=== PATIENT | male | born 1940 | race Caucasian/White ===

== ENCOUNTER 2018-08-11 09:58 | Inpatient (IN) | payer MEDICARE, OTHER ==
[2018-08-11] MEDS ORDERED: Sodium Chloride 0.9% 10 ML Syringe FLUSH PRN (10:32)
--- NOTE | 2018-08-11 10:43 | EDM.PDOC ---
ED HPI GENERAL MEDICAL PROBLEM - General Chief Complaint: General Stated Complaint: SWEELING IN HANDS Time Seen by Provider: 08/11/18 10:25 Source of Information: Reports: Patient, Family, RN Notes Reviewed History Limitations: Reports: No Limitations - History of Present Illness INITIAL COMMENTS - FREE TEXT/NARRATIVE: 78-year-old male presents to the emergency department today with family complaint of weakness. He does have a known history of dementia they noticed over the last week or so that has progressively gotten worse as he is now starting hallucinations by seeing bugs. His weakness has progressively gotten worse as well last night he was unable to get out of the chair and ended up sleeping on the floor last night he has a superficial abrasion on his left calf. His dementia is significant and is minimally communicative, review of systems is difficult to obtain - Related Data Allergies Allergy/AdvReac Type Severity Reaction Status Date / Time Penicillins Allergy Cardiac Verified 08/11/15 07:27 Arrest Home Meds: Home Meds Donepezil HCl 1 tab PO WITHDINNER 08/11/15 [History] Loratadine [Claritin] 1 tab PO DAILY 08/11/15 [History] Memantine [Namenda] 10 mg PO BID 08/11/18 [History] glipiZIDE [Glipizide ER] 2.5 mg PO ACBREAKFASTANDBED 08/11/18 [History] Past Medical History Cardiovascular History: Reports: Hypertension Respiratory History: Reports: Other (See Below) Other 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 Genitourinary History: Reports: Urinary Incontinence Neurological History: Reports: Alzheimers Disease, TIA Psychiatric History: Reports: Alzheimers Disease, Dementia Other Endocrine/Metabolic History: diabetes, on metformin - Infectious Disease History Infectious Disease History: Reports: Chicken Pox, Measles, Mumps - Past Surgical History GI Surgical History: Reports: Cholecystectomy Social & Family History - Family History Family Medical History: Noncontributory - Tobacco Use Smoking Status *Q: Never Smoker - Caffeine Use Caffeine Use: Reports: Coffee - Recreational Drug Use Recreational Drug Use: No ED ROS GENERAL - Review of Systems Review Of Systems: See Below Constitutional: Denies: Fever, Chills HEENT: Reports: No Symptoms Respiratory: Reports: No Symptoms Cardiovascular: Reports: No Symptoms GI/Abdominal: Reports: No Symptoms : Reports: Incontinence Musculoskeletal: Reports: No Symptoms Skin: Reports: Rash Neurological: Reports: No Symptoms ED EXAM, GENERAL - Physical Exam Exam: See Below Free Text/Narrative:: General: Male, not in any distress, alert and oriented x1 HEENT: head is atraumatic normocephalic, eyes pupils equal round reactive to light, sclera clear no conjunctivitis appreciated. Ears tympanic membranes clear and waters landmarks and light reflex are present bilaterally canals are clear. Nose no septal deviation, nares are clear, no blood present. Mouth mucosa is moist and pink no erythema or exudate noted in soft palate, tongue is midline uvula is midline, dentition is intact. Neck: Supple no thyromegaly no tracheal deviation. Nodes: Cervical nodes subclavicular nodes nontender no palpable lymphadenopathy noted. Lungs: clear to auscultation bilaterally with symmetrical respirations, no adventitious noise appreciated. CV: Regular rate and rhythm S1 and S2 appreciated no murmurs rubs or gallops noted. Abdomen: Soft, nontender, no palpable masses or organomegaly appreciated, no distention no guarding bowel sounds are present, . Neuro: GCS of 15, cranial nerves II through XII intact Skin: Warm and dry, intact superficial rash with abrasion appreciated left calf lateral aspect Extremities: No lower extremity edema appreciated, Course - Vital Signs Last Recorded V/S: Last Vital Signs Temp 98.1 F 08/11/18 10:03 Pulse 76 08/11/18 11:02 Resp 18 08/11/18 10:03 BP 134/53 L 08/11/18 11:02 Pulse Ox 90 L 08/11/18 11:02 - Orders/Labs/Meds Orders: Active Orders 24 hr Category Date Time Status Peripheral IV Care [RC] . DIRECTED Care 08/11/18 10:32 Active Azithromycin [Zithromax] 500 mg Med 08/11/18 12:30 Ordered Sodium Chloride 0.9% [Normal Saline] 250 ml IV ONETIME Lactated Ringers [Ringers, Lactated] 1,000 ml Med 08/11/18 10:45 Active IV ASDIRECTED Sodium Chloride 0.9% [Saline Flush] Med 08/11/18 10:32 Active 10 ml FLUSH ASDIRECTED PRN Peripheral IV Insertion Adult [OM.PC] Stat Oth 08/11/18 10:32 Ordered Medication Orders Lactated Ringer's (Ringers, Lactated) 1,000 mls @ 500 mls/hr IV ASDIRECTED NILE Last Admin: 08/11/18 11:01 Dose: 500 mls/hr Azithromycin 500 mg/ Sodium (Chloride) 250 mls @ 250 mls/hr IV ONETIME ONE Stop: 08/11/18 13:29 Sodium Chloride (Saline Flush) 10 ml FLUSH ASDIRECTED PRN PRN Reason: Keep Vein Open Last Admin: 08/11/18 11:01 Dose: 10 ml Labs: Laboratory Tests 08/11/18 08/11/18 08/11/18 Range/Units 10:48 10:48 10:48 WBC 10.9 (4.5-11.0) K/uL RBC 4.74 (4.30-5.90) M/uL Hgb 14.3 D (12.0-15.0) g/dL Hct 43.8 (40.0-54.0) % MCV 92 (80-98) fL MCH 30 (27-31) pg MCHC 33 (32-36) % Plt Count 270 (150-400) K/uL Neut % (Auto) 74 H (36-66) % Lymph % (Auto) 15 L (24-44) % Peach % (Auto) 10 H (2-6) % Eos % (Auto) 1 L (2-4) % Baso % (Auto) 0 (0-1) % Sodium 137 L (140-148) mmol/L Potassium 4.0 (3.6-5.2) mmol/L Chloride 105 (100-108) mmol/L Carbon Dioxide 21 (21-32) mmol/L Anion Gap 15.0 H (5.0-14.0) mmol/L BUN 22 H D (7-18) mg/dL Creatinine 1.1 (0.8-1.3) mg/dL Est Cr Clr Drug Dosing 60.85 mL/min Estimated GFR (MDRD) > 60 (>60) Glucose 143 H (74-106) mg/dL Lactic Acid (0.4-2.0) mmol/L Calcium 9.9 D (8.5-10.1) mg/dL Total Bilirubin 0.7 (0.2-1.0) mg/dL AST 30 (15-37) U/L ALT 32 (12-78) U/L Alkaline Phosphatase 66 (46-116) U/L Creatine Kinase 318 H (39-308) U/L Troponin I < 0.017 (0.000-0.056) ng/mL Total Protein 7.6 (6.4-8.2) g/dL Albumin 3.4 (3.4-5.0) g/dL Globulin 4.2 H (2.3-3.5) g/dL Albumin/Globulin Ratio 0.8 L (1.2-2.2) Urine Color Urine Appearance Urine pH (4.5-8.0) Ur Specific [place] (1.008-1.030) Urine Protein (NEGATIVE) mg/dL Urine Glucose (UA) (NEGATIVE) mg/dL Urine Ketones (NEGATIVE) mg/dL Urine Occult Blood (NEGATIVE) Urine Nitrite (NEGAITVE) Urine Bilirubin (NEGATIVE) Urine Urobilinogen (NORMAL) mg/dL Ur Leukocyte Esterase (NEGATIVE) Urine RBC (0-5) Urine WBC (0-5) Ur Epithelial Cells Amorphous Sediment Urine Bacteria Urine Mucus Urine Other 08/11/18 08/11/18 Range/Units 10:48 11:01 WBC (4.5-11.0) K/uL RBC (4.30-5.90) M/uL Hgb (12.0-15.0) g/dL Hct (40.0-54.0) % MCV (80-98) fL MCH (27-31) pg MCHC (32-36) % Plt Count (150-400) K/uL Neut % (Auto) (36-66) % Lymph % (Auto) (24-44) % [place] % (Auto) (2-6) % Eos % (Auto) (2-4) % Baso % (Auto) (0-1) % Sodium (140-148) mmol/L Potassium (3.6-5.2) mmol/L Chloride (100-108) mmol/L Carbon Dioxide (21-32) mmol/L Anion Gap (5.0-14.0) mmol/L BUN (7-18) mg/dL Creatinine (0.8-1.3) mg/dL Est Cr Clr Drug Dosing mL/min Estimated GFR (MDRD) (>60) Glucose (74-106) mg/dL Lactic Acid 5.3 H (0.4-2.0) mmol/L Calcium (8.5-10.1) mg/dL Total Bilirubin (0.2-1.0) mg/dL AST (15-37) U/L ALT (12-78) U/L Alkaline Phosphatase (46-116) U/L Creatine Kinase (39-308) U/L Troponin I (0.000-0.056) ng/mL Total Protein (6.4-8.2) g/dL Albumin (3.4-5.0) g/dL Globulin (2.3-3.5) g/dL Albumin/Globulin Ratio (1.2-2.2) Urine Color Yellow Urine Appearance Slightly cloudy Urine pH 5.0 (4.5-8.0) Ur Specific [place] 1.030 (1.008-1.030) Urine Protein Trace (NEGATIVE) mg/dL Urine Glucose (UA) Normal (NEGATIVE) mg/dL Urine Ketones 50 H (NEGATIVE) mg/dL Urine Occult Blood Trace (NEGATIVE) Urine Nitrite Negative (NEGAITVE) Urine Bilirubin Moderate (NEGATIVE) Urine Urobilinogen Normal (NORMAL) mg/dL Ur Leukocyte Esterase Negative (NEGATIVE) Urine RBC 0-5 (0-5) Urine WBC Not seen (0-5) Ur Epithelial Cells Not seen Amorphous Sediment Few Urine Bacteria Few Urine Mucus Moderate Urine Other Meds: Medications Generic Name Dose Route Start Last Admin Trade Name Freq PRN Reason Stop Dose Admin Lactated Ringer's 1,000 mls @ 500 mls/hr 08/11/18 10:45 08/11/18 11:01 Ringers, Lactated IV 500 mls/hr ASDIRECTED NILE Administration Azithromycin 500 mg/ Sodium 250 mls @ 250 mls/hr 08/11/18 12:30 Chloride IV 08/11/18 13:29 ONETIME ONE Sodium Chloride 10 ml 08/11/18 10:32 08/11/18 11:01 Saline Flush FLUSH 10 ml ASDIRECTED PRN Administration Keep Vein Open Discontinued Medications Generic Name Dose Route Start Last Admin Trade Name Freq PRN Reason Stop Dose Admin Ceftriaxone Sodium 1,000 mg 08/11/18 12:30 Rocephin IVPUSH 08/11/18 12:31 ONETIME ONE Departure - Departure Time of Disposition: 12:39 Disposition: Admitted As Inpatient 68 Condition: Fair Clinical Impression: CAP (community acquired pneumonia) Qualifiers: Laterality: right Lung location: lower lobe of lung Qualified Code(s): J18.1 - Lobar pneumonia, unspecified organism - Discharge Information Referrals: Seng Colunga MD [Primary Care Provider] - Forms: ED Department Discharge - My Orders Last 24 Hours: My Active Orders 08/11/18 10:32 Peripheral IV Care [RC] . DIRECTED Sodium Chloride 0.9% [Saline Flush] 10 ml FLUSH ASDIRECTED PRN Peripheral IV Insertion Adult [OM.PC] Stat 08/11/18 10:45 Lactated Ringers [Ringers, Lactated] 1,000 ml IV ASDIRECTED 08/11/18 12:30 Azithromycin [Zithromax] 500 mg Sodium Chloride 0.9% [Normal Saline] 250 ml IV ONETIME - Assessment/Plan Last 24 Hours: My Active Orders 08/11/18 10:32 Peripheral IV Care [RC] . DIRECTED Sodium Chloride 0.9% [Saline Flush] 10 ml FLUSH ASDIRECTED PRN Peripheral IV Insertion Adult [OM.PC] Stat 08/11/18 10:45 Lactated Ringers [Ringers, Lactated] 1,000 ml IV ASDIRECTED 08/11/18 12:30 Azithromycin [Zithromax] 500 mg Sodium Chloride 0.9% [Normal Saline] 250 ml IV ONETIME Plan: Assessment Acuity = acute Site and laterality = community acquired pneumonia, kidney patient with known history of dementia Etiology = suspicious for bacterial cause Manifestations = weakness, increased confusion Location of injury = Home Lab values = CBC unremarkable CMP unremarkable lactic acid elevated at 5.3 consistent with lactic acidosis, so came mildly elevated at 318 troponin was negative urinalysis unremarkable chest x-ray suspicious for pneumonia in the right lower lobe per radiology Plan Call discussed case with hospitalist at 12:30 he kindly agreed to come to the emergency department for admission, antibiotics of Rocephin and azithromycin have been order This note was dictated using [employer] voice recognition software please call with any questions on syntax or grammar.
[2018-08-11] MEDS ORDERED: Lactated Ringers 1,000 ML IV SCH (10:45)
--- NOTE | 2018-08-11 11:10 | CRLCR ---
INDICATION: Cough TECHNIQUE: Chest 1 views COMPARISON: August 11, 2015 FINDINGS: Cardiovascular and mediastinum: Heart size and vasculature are normal in caliber and appearance. Lungs and pleural spaces: Small ill-defined infiltrate may be present in the right infrahilar region. Remainder of the lungs and pleural spaces are clear. Bones and soft tissues: No significant findings. IMPRESSION: Acute pneumonia may be present in the right infrahilar region. Dictated by Boom Ponce MD @ Aug 11 2018 11:04AM Signed by Dr. Boom Ponce @ Aug 11 2018 11:08AM
[2018-08-11] MEDS ORDERED: cefTRIAXone 500 MG Vial IVPUSH ONE (12:30)
[2018-08-11] MEDS ORDERED: Azithromycin 500 MG in Sodium Chloride 0.9% 250 ML IV ONE (12:30)
[2018-08-11] MEDS ORDERED: Levofloxacin/Dextrose 5%-Water 750 MG in Premix Bag 1 BAG IV ONE (13:07)
--- NOTE | 2018-08-11 13:19 | PCM.HP ---
H&P History of Present Illness - General Date of Service: 08/11/18 Admit Problem/Dx: Admission Diagnosis/Problem Admission Diagnosis/Problem Pneumonia Source of Information: Patient (limited by dementia ), Family History Limitations: Reports: Other - History of Present Illness Initial Comments - Free Text/Narative: CC: I couldn't get off the floor HPI: Anam presented to the ER today by ambulance with weakness. History is gathered from emergency room personnel as well as his . He contributes some but has Alzheimer's dementia making history unreliable. He has had progressive weakness for several days. He's also been hallucinating and seeing spiders. He has also been looking for the dynamite but family reports there is none present in the home. He has been slowly getting weaker to the point that he was unable to stand up last night and slit off of his chair down to the floor. He was too weak to get up so he spent the night on the floor. He did do a fair amount of coughing yesterday but has not produced any sputum. There are not aware of any fevers or chills. Appetite has been normal. No change in bowel or bladder habits from baseline. No obvious sick contacts. He reports pain and some swelling in both his hands and his feet. This is been present for a couple of weeks but does not seem to get better. Workup in the emergency room suggested a right lower lobe pneumonia. Vital signs were stable but his lactic acid was moderately elevated and his creatine kinase was mildly elevated. With his multiple issues outlined in the assessment and plan he is not safe for outpatient management at this time. - Related Data Allergies/Adverse Reactions: Allergies Allergy/AdvReac Type Severity Reaction Status Date / Time Penicillins Allergy Cardiac Verified 08/11/15 07:27 Arrest Home Medications: Home Meds Donepezil HCl 1 tab PO WITHDINNER 08/11/15 [History] Loratadine [Claritin] 1 tab PO DAILY 08/11/15 [History] Memantine [Namenda] 10 mg PO BID 08/11/18 [History] glipiZIDE [Glipizide ER] 2.5 mg PO ACBREAKFASTANDBED 08/11/18 [History] Past Medical History Cardiovascular History: Reports: Hypertension Respiratory History: Reports: Other (See Below) Other 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 Genitourinary History: Reports: Urinary Incontinence Neurological History: Reports: Alzheimers Disease, TIA Psychiatric History: Reports: Alzheimers Disease, Dementia Other Endocrine/Metabolic History: diabetes, on metformin - Infectious Disease History Infectious Disease History: Reports: Chicken Pox, Measles, Mumps - Past Surgical History GI Surgical History: Reports: Cholecystectomy Social & Family History - Family History Family Medical History: Noncontributory - Tobacco Use Smoking Status *Q: Never Smoker - Caffeine Use Caffeine Use: Reports: Coffee - Alcohol Use Alcohol Use History: No - Recreational Drug Use Recreational Drug Use: No H&P Review of Systems - Review of Systems: Review Of Systems: See Below Free Text/Narrative: A complete 12 point review of systems was obtained. Pertinent positives and negatives are noted in the history of present illness. All other systems were reviewed and were negative except as noted. Exam - Exam Exam: See Below - Vital Signs Vital Signs: Last Vital Signs Temp 36.7 C 08/11/18 10:03 Pulse 76 08/11/18 11:02 Resp 18 08/11/18 10:03 BP 134/53 L 08/11/18 11:02 Pulse Ox 90 L 08/11/18 11:02 Weight: 95.7 kg - Exam Quality Assessment: No: Supplemental Oxygen General: Alert, Cooperative. No: Oriented, Mild Distress HEENT: Conjunctiva Clear. No: Mucosa Moist & Vayas (dry), Scleral Icterus Neck: Supple, Trachea Midline. No: Lymphadenopathy Lungs: Normal Respiratory Effort, Crackles (right lung base). No: Wheezing Cardiovascular: Regular Rate, Regular Rhythm. No: Systolic Murmur GI/Abdominal Exam: Normal Bowel Sounds, Soft, Non-Tender, No Distention, No Mass Back Exam: Normal Inspection. No: Vertebral Tenderness Extremities: No Pedal Edema, Increased Warmth (mild both wrists, both knees, both ankles and the tops of both feet ), Other (no erythema over any joints ) Skin: Warm, Dry. No: Rash Neuro Extensive - Mental Status: Alert, Nl Response to Commands. No: Oriented x3 Neuro Extensive - Motor, Sensory, Reflexes: No: Dysarthria, Abnormal Motor, Tremor Psychiatric: Alert, Normal Affect. No: Agitated - Patient Data Lab Results Last 24 hrs: Laboratory Results - last 24 hr 08/11/18 08/11/18 08/11/18 Range/Units 10:48 10:48 10:48 WBC 10.9 (4.5-11.0) K/uL RBC 4.74 (4.30-5.90) M/uL Hgb 14.3 D (12.0-15.0) g/dL Hct 43.8 (40.0-54.0) % MCV 92 (80-98) fL MCH 30 (27-31) pg MCHC 33 (32-36) % Plt Count 270 (150-400) K/uL Neut % (Auto) 74 H (36-66) % Lymph % (Auto) 15 L (24-44) % [place] % (Auto) 10 H (2-6) % Eos % (Auto) 1 L (2-4) % Baso % (Auto) 0 (0-1) % Sodium 137 L (140-148) mmol/L Potassium 4.0 (3.6-5.2) mmol/L Chloride 105 (100-108) mmol/L Carbon Dioxide 21 (21-32) mmol/L Anion Gap 15.0 H (5.0-14.0) mmol/L BUN 22 H D (7-18) mg/dL Creatinine 1.1 (0.8-1.3) mg/dL Est Cr Clr Drug Dosing 60.85 mL/min Estimated GFR (MDRD) > 60 (>60) Glucose 143 H (74-106) mg/dL Lactic Acid (0.4-2.0) mmol/L Calcium 9.9 D (8.5-10.1) mg/dL Total Bilirubin 0.7 (0.2-1.0) mg/dL AST 30 (15-37) U/L ALT 32 (12-78) U/L Alkaline Phosphatase 66 (46-116) U/L Creatine Kinase 318 H (39-308) U/L Troponin I < 0.017 (0.000-0.056) ng/mL Total Protein 7.6 (6.4-8.2) g/dL Albumin 3.4 (3.4-5.0) g/dL Globulin 4.2 H (2.3-3.5) g/dL Albumin/Globulin Ratio 0.8 L (1.2-2.2) Urine Color Urine Appearance Urine pH (4.5-8.0) Ur Specific [place] (1.008-1.030) Urine Protein (NEGATIVE) mg/dL Urine Glucose (UA) (NEGATIVE) mg/dL Urine Ketones (NEGATIVE) mg/dL Urine Occult Blood (NEGATIVE) Urine Nitrite (NEGAITVE) Urine Bilirubin (NEGATIVE) Urine Urobilinogen (NORMAL) mg/dL Ur Leukocyte Esterase (NEGATIVE) Urine RBC (0-5) Urine WBC (0-5) Ur Epithelial Cells Amorphous Sediment Urine Bacteria Urine Mucus Urine Other 08/11/18 08/11/18 Range/Units 10:48 11:01 WBC (4.5-11.0) K/uL RBC (4.30-5.90) M/uL Hgb (12.0-15.0) g/dL Hct (40.0-54.0) % MCV (80-98) fL MCH (27-31) pg MCHC (32-36) % Plt Count (150-400) K/uL Neut % (Auto) (36-66) % Lymph % (Auto) (24-44) % [place] % (Auto) (2-6) % Eos % (Auto) (2-4) % Baso % (Auto) (0-1) % Sodium (140-148) mmol/L Potassium (3.6-5.2) mmol/L Chloride (100-108) mmol/L Carbon Dioxide (21-32) mmol/L Anion Gap (5.0-14.0) mmol/L BUN (7-18) mg/dL Creatinine (0.8-1.3) mg/dL Est Cr Clr Drug Dosing mL/min Estimated GFR (MDRD) (>60) Glucose (74-106) mg/dL Lactic Acid 5.3 H (0.4-2.0) mmol/L Calcium (8.5-10.1) mg/dL Total Bilirubin (0.2-1.0) mg/dL AST (15-37) U/L ALT (12-78) U/L Alkaline Phosphatase (46-116) U/L Creatine Kinase (39-308) U/L Troponin I (0.000-0.056) ng/mL Total Protein (6.4-8.2) g/dL Albumin (3.4-5.0) g/dL Globulin (2.3-3.5) g/dL Albumin/Globulin Ratio (1.2-2.2) Urine Color Yellow Urine Appearance Slightly cloudy Urine pH 5.0 (4.5-8.0) Ur Specific [place] 1.030 (1.008-1.030) Urine Protein Trace (NEGATIVE) mg/dL Urine Glucose (UA) Normal (NEGATIVE) mg/dL Urine Ketones 50 H (NEGATIVE) mg/dL Urine Occult Blood Trace (NEGATIVE) Urine Nitrite Negative (NEGAITVE) Urine Bilirubin Moderate (NEGATIVE) Urine Urobilinogen Normal (NORMAL) mg/dL Ur Leukocyte Esterase Negative (NEGATIVE) Urine RBC 0-5 (0-5) Urine WBC Not seen (0-5) Ur Epithelial Cells Not seen Amorphous Sediment Few Urine Bacteria Few Urine Mucus Moderate Urine Other Result Diagrams: 08/11/18 10:48 08/11/18 10:48 Imaging Impressions Last 24 hrs: CXR - images personally reviewed - there is a subtle right lower lung infiltrate. no mass or effusion. heart size is normal. *Q Meaningful Use (ADM) - VTE Risk Assess *Q Each Risk Factor Represents 1 Point: Obesity ( BMI > 25 kg/m2), Serious lung disease including pneumonia Total Score 1 Point Risk Factors: 2 Each Risk Factor Represents 2 Points: None Total Score 2 Point Risk Factors: 0 Each Risk Factor Represents 3 Points: Age 75 Years or Greater Total Score 3 Point Risk Factors: 3 Each Risk Factor Represents 5 Points: None Total Score 5 Point Risk Factors: 0 Venous Thromboembolism Risk Factor Score *Q: 5 - Problem List (1) CAP (community acquired pneumonia) SNOMED Code(s): 796418821 ICD Code: J18.9 - PNEUMONIA, UNSPECIFIED ORGANISM Status: Acute Current Visit: Yes Qualifiers: Laterality: right Lung location: lower lobe of lung Qualified Code(s): J18.1 - Lobar pneumonia, unspecified organism (2) Moderate dehydration SNOMED Code(s): 2250903168577 ICD Code: E86.0 - DEHYDRATION Status: Acute Current Visit: Yes (3) Alzheimer's dementia without behavioral disturbance SNOMED Code(s): 91266373 ICD Code: G30.9 - ALZHEIMER'S DISEASE, UNSPECIFIED; F02.80 - DEMENTIA IN OTH DISEASES CLASSD ELSWHR W/O BEHAVRL DISTURB Status: Chronic Current Visit: Yes Qualifiers: Alzheimer's disease onset: late-onset Qualified Code(s): G30.1 - Alzheimer' s disease with late onset; F02.80 - Dementia in other diseases classified elsewhere without behavioral disturbance (4) Type 2 diabetes mellitus SNOMED Code(s): 56886544 ICD Code: E11.9 - TYPE 2 DIABETES MELLITUS WITHOUT COMPLICATIONS Status: Chronic Current Visit: Yes Qualifiers: Diabetes mellitus oil heaterman insulin use: without nursing home use Diabetes mellitus complication status: with unspecified complications Qualified Code(s) : E11.8 - Type 2 diabetes mellitus with unspecified complications Problem List Initiated/Reviewed/Updated: Yes Orders Last 24hrs: Active Orders 24 hr Category Date Time Status Patient Status Manage Transfer [TRANSFER] Routine ADT 08/11/18 13:09 Ordered Peripheral IV Care [RC] . DIRECTED Care 08/11/18 10:32 Active Levofloxacin/Dextrose 5%-Water [Levaquin in D5W 750 MG/ Med 08/11/18 13:07 Active 150 ML] 750 mg Premix Bag 1 bag IV ONETIME Sodium Chloride 0.9% [Normal Saline] 1,000 ml Med 08/11/18 13:15 Active IV ASDIRECTED Sodium Chloride 0.9% [Saline Flush] Med 08/11/18 10:32 Active 10 ml FLUSH ASDIRECTED PRN Peripheral IV Insertion Adult [OM.PC] Stat Oth 08/11/18 10:32 Ordered Resuscitation Status Routine Resus Stat 08/11/18 13:11 Ordered Medication Orders Levofloxacin/Dextrose 750 mg/ (Premix) 150 mls @ 100 mls/hr IV ONETIME ONE Stop: 08/11/18 14:36 Sodium Chloride (Normal Saline) 1,000 mls @ 150 mls/hr IV ASDIRECTED NILE Sodium Chloride (Saline Flush) 10 ml FLUSH ASDIRECTED PRN PRN Reason: Keep Vein Open Last Admin: 08/11/18 11:01 Dose: 10 ml Assessment/Plan Comment:: ASSESSMENT AND PLAN - Community-acquired pneumonia - patient is weak and hallucinating area vital signs are all stable. He is not currently hypoxic. Is not currently febrile. -Levofloxacin -Supplement oxygen if needed -Symptomatic management of cough Moderate dehydration - moderate elevation of lactic acid and mild elevation of CK. With his night on the floor he may progress to rhabdomyolysis. I suspect the lactic acidosis is related to dehydration and intravascular volume depletion rather than sepsis. He has received 1 L of IV fluids in the emergency room. -Normal saline at 150 mL per hour -Repeat CK level in the morning -Repeat lactic acid level this afternoon Symmetric polyarthritis - involves wrists, knees, ankles and metatarsals. Pseudogout is suspected. -Uric acid level -Prednisone 20 mg daily for 3 days Type 2 diabetes mellitus - Sugars have been stable with only a low-dose oral medication. -Continue glipizide Alzheimer's dementia - No significant behavior issues at this time. -Melatonin at bedtime -Continue home medications Maintenance issues - - DVT prophylaxis - enoxaparin - GI prophylaxis - not indicated - Nutrition - diabetic - Campos catheter - not indicated CODE STATUS - DNR/DNI Admission justification - This patient will be admitted for inpatient services and is medically appropriate meeting medical necessity for inpatient admission as outlined in my documentation. I reasonably expect the patient will require inpatient services that span a period time over 2 midnights. I reasonably expect this patient to be discharged or transferred within 96 hours after admission to the [facility]. Disposition - I would anticipate discharge home possibly with home care versus may be a short subacute rehabilitation stay Primary care physician - Dr Keanu Light M.D.
[2018-08-11] MEDS: Sodium Chloride 0.9% 1,000 ML IV SCH ×2 (13:23→19:34)
[2018-08-11] MEDS ORDERED: Polyethylene Glycol 3350 Powder 17 GM Packet PO PRN (13:48)
[2018-08-11] MEDS ORDERED: guaiFENesin/Dextromethorphan 100-10 MG/5 ML Soln 10 ML Cup PO PRN (13:48)
[2018-08-11] MEDS ORDERED: Albuterol 0.083% 2.5 MG/3 ML Neb Soln NEB PRN (13:48)
[2018-08-11] MEDS ORDERED: Ondansetron 4 MG Tab.DIS PO PRN (13:48)
[2018-08-11] MEDS ORDERED: Acetaminophen 325 MG Tab PO PRN (13:48)
[2018-08-11] MEDS ORDERED: predniSONE 20 MG Tab PO ONE (14:15)
[2018-08-11] MEDS: Donepezil 10 MG Tab PO SCH (17:40)
[2018-08-11] MEDS ORDERED: Haloperidol Lactate 5 MG/ML SDV IVPUSH PRN (18:29)
[2018-08-11] MEDS ORDERED: GLIPIZIDE 2.5 MG PO SCH (21:00)
[2018-08-11] MEDS: glipiZIDE 5 MG Tab PO SCH (22:15)
[2018-08-11] MEDS: Memantine 10 MG Tab PO SCH (22:16)
[2018-08-11] MEDS: Melatonin 3 MG Tab PO SCH (22:16)
[2018-08-12] MEDS: Sodium Chloride 0.9% 1,000 ML IV SCH ×4 (02:17→23:18)
[2018-08-12] MEDS: predniSONE 20 MG Tab PO SCH (07:52)
[2018-08-12] MEDS: glipiZIDE 5 MG Tab PO SCH ×2 (07:52→21:17)
[2018-08-12] MEDS: Enoxaparin 40 MG/0.4 ML Syringe SUBCUT SCH (08:06)
[2018-08-12] MEDS: Memantine 10 MG Tab PO SCH ×2 (08:06→21:18)
[2018-08-12] MEDS: Loratadine 10 MG Tab PO SCH (08:07)
[2018-08-12] MEDS ORDERED: LORATADINE PO SCH (09:00)
--- NOTE | 2018-08-12 10:56 | PCM.PN ---
- General Info Date of Service: 08/12/18 Subjective Update: he had some mild agitation which was brief but there were no acute events overnight. Lactic acid level improved but did not quite normalize. CK level initially ben slightly but has improved but not quite normalize this morning. Patient reports that his wrist pain and ankle pain have improved but he doesn't think they're quite gone. no complaints of shortness of breath or abdominal pain. He has not required oxygen. He has not been coughing much. Functional Status: Reports: Pain Controlled - Review of Systems General: Reports: Weakness. Denies: Fever - Patient Data Vitals - Most Recent: Last Vital Signs Temp 36.3 C 08/12/18 07:00 Pulse 69 08/12/18 07:00 Resp 16 08/12/18 07:00 BP 137/65 08/12/18 07:00 Pulse Ox 96 08/12/18 07:00 Weight - Most Recent: 94.03 kg I&O - Last 24 Hours: Intake & Output 08/11/18 08/12/18 08/12/18 22:59 06:59 14:59 Intake Total 2168 1963 280 Balance 2168 1963 280 Lab Results Last 24 Hours: Laboratory Results - last 24 hr 08/11/18 08/11/18 08/11/18 Range/Units 10:48 10:48 10:48 WBC (4.5-11.0) K/uL RBC (4.30-5.90) M/uL Hgb (12.0-15.0) g/dL Hct (40.0-54.0) % MCV (80-98) fL MCH (27-31) pg MCHC (32-36) % Plt Count (150-400) K/uL Neut % (Auto) (36-66) % Lymph % (Auto) (24-44) % [place] % (Auto) (2-6) % Eos % (Auto) (2-4) % Baso % (Auto) (0-1) % Sodium 137 L (140-148) mmol/L Potassium 4.0 (3.6-5.2) mmol/L Chloride 105 (100-108) mmol/L Carbon Dioxide 21 (21-32) mmol/L Anion Gap 15.0 H (5.0-14.0) mmol/L BUN 22 H D (7-18) mg/dL Creatinine 1.1 (0.8-1.3) mg/dL Est Cr Clr Drug Dosing 60.85 mL/min Estimated GFR (MDRD) > 60 (>60) Glucose 143 H (74-106) mg/dL Lactic Acid 5.3 H (0.4-2.0) mmol/L Calcium 9.9 D (8.5-10.1) mg/dL Total Bilirubin 0.7 (0.2-1.0) mg/dL AST 30 (15-37) U/L ALT 32 (12-78) U/L Alkaline Phosphatase 66 (46-116) U/L Creatine Kinase 318 H (39-308) U/L Troponin I < 0.017 (0.000-0.056) ng/mL Total Protein 7.6 (6.4-8.2) g/dL Albumin 3.4 (3.4-5.0) g/dL Globulin 4.2 H (2.3-3.5) g/dL Albumin/Globulin Ratio 0.8 L (1.2-2.2) Urine Color Urine Appearance Urine pH (4.5-8.0) Ur Specific [place] (1.008-1.030) Urine Protein (NEGATIVE) mg/dL Urine Glucose (UA) (NEGATIVE) mg/dL Urine Ketones (NEGATIVE) mg/dL Urine Occult Blood (NEGATIVE) Urine Nitrite (NEGAITVE) Urine Bilirubin (NEGATIVE) Urine Urobilinogen (NORMAL) mg/dL Ur Leukocyte Esterase (NEGATIVE) Urine RBC (0-5) Urine WBC (0-5) Ur Epithelial Cells Amorphous Sediment Urine Bacteria Urine Mucus Urine Other 08/11/18 08/11/18 08/11/18 Range/Units 11:01 14:20 20:00 WBC (4.5-11.0) K/uL RBC (4.30-5.90) M/uL Hgb (12.0-15.0) g/dL Hct (40.0-54.0) % MCV (80-98) fL MCH (27-31) pg MCHC (32-36) % Plt Count (150-400) K/uL Neut % (Auto) (36-66) % Lymph % (Auto) (24-44) % [place] % (Auto) (2-6) % Eos % (Auto) (2-4) % Baso % (Auto) (0-1) % Sodium (140-148) mmol/L Potassium (3.6-5.2) mmol/L Chloride (100-108) mmol/L Carbon Dioxide (21-32) mmol/L Anion Gap (5.0-14.0) mmol/L BUN (7-18) mg/dL Creatinine (0.8-1.3) mg/dL Est Cr Clr Drug Dosing mL/min Estimated GFR (MDRD) (>60) Glucose (74-106) mg/dL Lactic Acid 2.8 H (0.4-2.0) mmol/L Calcium (8.5-10.1) mg/dL Total Bilirubin (0.2-1.0) mg/dL AST (15-37) U/L ALT (12-78) U/L Alkaline Phosphatase (46-116) U/L Creatine Kinase 700 H (39-308) U/L Troponin I (0.000-0.056) ng/mL Total Protein (6.4-8.2) g/dL Albumin (3.4-5.0) g/dL Globulin (2.3-3.5) g/dL Albumin/Globulin Ratio (1.2-2.2) Urine Color Yellow Urine Appearance Slightly cloudy Urine pH 5.0 (4.5-8.0) Ur Specific [place] 1.030 (1.008-1.030) Urine Protein Trace (NEGATIVE) mg/dL Urine Glucose (UA) Normal (NEGATIVE) mg/dL Urine Ketones 50 H (NEGATIVE) mg/dL Urine Occult Blood Trace (NEGATIVE) Urine Nitrite Negative (NEGAITVE) Urine Bilirubin Moderate (NEGATIVE) Urine Urobilinogen Normal (NORMAL) mg/dL Ur Leukocyte Esterase Negative (NEGATIVE) Urine RBC 0-5 (0-5) Urine WBC Not seen (0-5) Ur Epithelial Cells Not seen Amorphous Sediment Few Urine Bacteria Few Urine Mucus Moderate Urine Other 08/11/18 08/12/18 08/12/18 Range/Units 20:00 06:02 06:02 WBC 9.2 (4.5-11.0) K/uL RBC 4.32 (4.30-5.90) M/uL Hgb 13.0 (12.0-15.0) g/dL Hct 40.3 (40.0-54.0) % MCV 93 (80-98) fL MCH 30 (27-31) pg MCHC 32 (32-36) % Plt Count 240 (150-400) K/uL Neut % (Auto) 63 (36-66) % Lymph % (Auto) 25 (24-44) % [place] % (Auto) 10 H (2-6) % Eos % (Auto) 2 (2-4) % Baso % (Auto) 0 (0-1) % Sodium 141 (140-148) mmol/L Potassium 3.6 (3.6-5.2) mmol/L Chloride 107 (100-108) mmol/L Carbon Dioxide 24 (21-32) mmol/L Anion Gap 9.8 (5.0-14.0) mmol/L BUN 11 (7-18) mg/dL Creatinine 0.7 L (0.8-1.3) mg/dL Est Cr Clr Drug Dosing 95.62 mL/min Estimated GFR (MDRD) > 60 (>60) Glucose 119 H (74-106) mg/dL Lactic Acid 3.3 H (0.4-2.0) mmol/L Calcium 9.4 (8.5-10.1) mg/dL Total Bilirubin (0.2-1.0) mg/dL AST (15-37) U/L ALT (12-78) U/L Alkaline Phosphatase (46-116) U/L Creatine Kinase 460 H (39-308) U/L Troponin I (0.000-0.056) ng/mL Total Protein (6.4-8.2) g/dL Albumin (3.4-5.0) g/dL Globulin (2.3-3.5) g/dL Albumin/Globulin Ratio (1.2-2.2) Urine Color Urine Appearance Urine pH (4.5-8.0) Ur Specific [place] (1.008-1.030) Urine Protein (NEGATIVE) mg/dL Urine Glucose (UA) (NEGATIVE) mg/dL Urine Ketones (NEGATIVE) mg/dL Urine Occult Blood (NEGATIVE) Urine Nitrite (NEGAITVE) Urine Bilirubin (NEGATIVE) Urine Urobilinogen (NORMAL) mg/dL Ur Leukocyte Esterase (NEGATIVE) Urine RBC (0-5) Urine WBC (0-5) Ur Epithelial Cells Amorphous Sediment Urine Bacteria Urine Mucus Urine Other Med Orders - Current: Current Medications Acetaminophen (Tylenol) 650 mg PO Q4H PRN PRN Reason: Pain (Mild 1-3)/fever Albuterol (Proventil Neb Soln) 2.5 mg NEB Q4H PRN PRN Reason: Shortness Of Breath/wheezing Donepezil HCl (Aricept) 10 mg PO WITHDINNER [facility] Last Admin: 08/11/18 17:40 Dose: 10 mg Enoxaparin Sodium (Lovenox) 40 mg SUBCUT DAILY [facility] Last Admin: 08/12/18 08:06 Dose: 40 mg Glipizide (Glucotrol) 2.5 mg PO ACBREAKFASTANDBED [facility] Last Admin: 08/12/18 07:52 Dose: 2.5 mg Guaifenesin/Dextromethorphan (Robitussin Dm) 10 ml PO Q4H PRN PRN Reason: Cough Haloperidol Lactate (Haldol) 1 - 2 mg IVPUSH Q4H PRN PRN Reason: Agitation Last Admin: 08/11/18 18:47 Dose: 2 mg Sodium Chloride (Normal Saline) 1,000 mls @ 150 mls/hr IV ASDIRECTED [facility] Last Admin: 08/12/18 09:51 Dose: 150 mls/hr Levofloxacin 250 mg/ (Levofloxacin 500 mg) 750 mg PO Q24H [facility] Loratadine (Claritin) 10 mg PO DAILY [facility] Last Admin: 08/12/18 08:07 Dose: 10 mg Melatonin (Melatonin) 9 mg PO BEDTIME [facility] Last Admin: 08/11/18 22:16 Dose: 9 mg Memantine (Namenda) 10 mg PO BID [facility] Last Admin: 08/12/18 08:06 Dose: 10 mg Ondansetron HCl (Zofran Odt) 4 mg PO Q6H PRN PRN Reason: Nausea able to take PO Polyethylene Glycol (Miralax) 17 gm PO DAILY PRN PRN Reason: Constipation Prednisone (Prednisone) 20 mg PO WITHBREAKFAST [facility] Last Admin: 08/12/18 07:52 Dose: 20 mg Senna/Docusate Sodium (Senna Plus) 1 tab PO BID PRN PRN Reason: Constipation Sodium Chloride (Saline Flush) 10 ml FLUSH ASDIRECTED PRN PRN Reason: Keep Vein Open Last Admin: 08/11/18 11:01 Dose: 10 ml Discontinued Medications Lactated Ringer's (Ringers, Lactated) 1,000 mls @ 500 mls/hr IV ASDIRECTED [facility] Last Admin: 08/11/18 11:01 Dose: 500 mls/hr Levofloxacin/Dextrose 750 mg/ (Premix) 150 mls @ 100 mls/hr IV ONETIME ONE Stop: 08/11/18 14:36 Last Admin: 08/11/18 13:24 Dose: 100 mls/hr Prednisone (Prednisone) 20 mg PO ONETIME ONE Stop: 08/11/18 14:16 Last Admin: 08/11/18 15:05 Dose: 20 mg - Exam Quality Assessment: No: Supplemental Oxygen General: Alert, Cooperative, No Acute Distress. No: Oriented HEENT: Pupils Equal Lungs: Clear to Auscultation, Normal Respiratory Effort Cardiovascular: Regular Rate, Regular Rhythm GI/Abdominal Exam: Normal Bowel Sounds, Soft, No Distention Extremities: No Pedal Edema. No: Increased Warmth (no warmth of wrists, knees, ankles or feet today ) Skin: Warm, Dry Psy/Mental Status: Alert, Normal Affect - Problem List & Annotations (1) CAP (community acquired pneumonia) SNOMED Code(s): 039297949 Code(s): J18.9 - PNEUMONIA, UNSPECIFIED ORGANISM Status: Acute Current Visit: Yes Qualifiers: Laterality: right Lung location: lower lobe of lung Qualified Code(s): J18.1 - Lobar pneumonia, unspecified organism (2) Moderate dehydration SNOMED Code(s): 0371216844019 Code(s): E86.0 - DEHYDRATION Status: Acute Current Visit: Yes (3) Alzheimer's dementia without behavioral disturbance SNOMED Code(s): 87225566 Code(s): G30.9 - ALZHEIMER'S DISEASE, UNSPECIFIED; F02.80 - DEMENTIA IN OTH DISEASES CLASSD ELSWHR W/O BEHAVRL DISTURB Status: Chronic Current Visit: Yes Qualifiers: Alzheimer's disease onset: late-onset Qualified Code(s): G30.1 - Alzheimer' s disease with late onset; F02.80 - Dementia in other diseases classified elsewhere without behavioral disturbance (4) Type 2 diabetes mellitus SNOMED Code(s): 78384981 Code(s): E11.9 - TYPE 2 DIABETES MELLITUS WITHOUT COMPLICATIONS Status: Chronic Current Visit: Yes Qualifiers: Diabetes mellitus senior living insulin use: without long term care pharmacist use Diabetes mellitus complication status: with unspecified complications Qualified Code(s) : E11.8 - Type 2 diabetes mellitus with unspecified complications - Problem List Review Problem List Initiated/Reviewed/Updated: Yes - My Orders Last 24 Hours: My Active Orders 08/11/18 13:11 Resuscitation Status Routine 08/11/18 13:15 Sodium Chloride 0.9% [Normal Saline] 1,000 ml IV ASDIRECTED 08/11/18 13:48 Patient Status [ADT] Routine Intake and Output [RC] QSHIFT Notify Provider Vital Signs [RC] ASDIRECTED Oxygen Therapy [RC] PRN RT Aerosol Therapy [RC] ASDIRECTED Up With Assistance [RC] ASDIRECTED Vital Signs [RC] Q4H Acetaminophen [Tylenol] 650 mg PO Q4H PRN Albuterol [Proventil Neb Soln] 2.5 mg NEB Q4H PRN Dextromethorphan/guaiFENesin [Robitussin DM] 10 ml PO Q4H PRN Docusate Sodium/Sennosides [Senna Plus] 1 tab PO BID PRN Ondansetron [Zofran ODT] 4 mg PO Q6H PRN Polyethylene Glycol 3350 [MiraLAX] 17 gm PO DAILY PRN 08/11/18 17:00 Donepezil [Aricept] 10 mg PO WITHDINNER 08/11/18 21:00 Melatonin 9 mg PO BEDTIME Memantine [Namenda] 10 mg PO BID glipiZIDE [Glucotrol] 2.5 mg PO ACBREAKFASTANDBED 08/11/18 Dinner Consistent Carbohydrate Diet [DIET] 08/12/18 07:00 PT Evaluation and Treatment [CONS] Routine 08/12/18 08:00 predniSONE 20 mg PO WITHBREAKFAST 08/12/18 09:00 Enoxaparin [Lovenox] 40 mg SUBCUT DAILY Loratadine [Claritin] 10 mg PO DAILY 08/12/18 14:00 Levofloxacin [Levaquin] 750 mg PO Q24H 08/13/18 05:00 BASIC METABOLIC PANEL,BMP [CHEM] Timed CREATINE KINASE,CK [CHEM] Timed - Plan Plan:: ASSESSMENT AND PLAN - Community-acquired pneumonia - vitals stable, not requiring oxygen and doing well from a pneumonia standpoint. -Levofloxacin -Supplement oxygen if needed -Symptomatic management of cough Acute rhabdomyolysis - patient spent the night on the floor the night prior to admission and did develop mild rhabdomyolysis with moderate dehydration complicating the situation. CK level initially ben but has improved overnight but not back to normal yet. -Normal saline at 150 mL per hour -Repeat CK level in the morning -Repeat lactic acid level this afternoon Symmetric polyarthritis - involves wrists, knees, ankles and metatarsals. Pseudogout is suspected and clinically he is better today. -Prednisone 20 mg daily for 3 days Type 2 diabetes mellitus - Sugars have been stable with only a low-dose oral medication. -Continue glipizide Alzheimer's dementia - No significant behavior issues at this time. -Melatonin at bedtime -Continue home medications Maintenance issues - - DVT prophylaxis - enoxaparin - GI prophylaxis - not indicated - Nutrition - diabetic Disposition - I would anticipate discharge home possibly with home care versus may be a short subacute rehabilitation stay Primary care physician - Dr Keanu Light M.D.
[2018-08-12] MEDS ORDERED: Levofloxacin 500 MG Tab PO SCH (14:00)
[2018-08-12] MEDS: Donepezil 10 MG Tab PO SCH (17:35)
[2018-08-12] MEDS: Melatonin 3 MG Tab PO SCH (21:18)
[2018-08-13] MEDS: Sodium Chloride 0.9% 1,000 ML IV SCH (06:11)
[2018-08-13] MEDS: glipiZIDE 5 MG Tab PO SCH ×2 (07:46→21:24)
[2018-08-13] MEDS: predniSONE 20 MG Tab PO SCH (07:46)
[2018-08-13] MEDS ORDERED: Potassium Chloride 20 MEQ Tab.ER PO ONE (09:30)
[2018-08-13] MEDS: Memantine 10 MG Tab PO SCH ×2 (09:42→21:25)
[2018-08-13] MEDS: Enoxaparin 40 MG/0.4 ML Syringe SUBCUT SCH (09:42)
[2018-08-13] MEDS: Loratadine 10 MG Tab PO SCH (09:42)
[2018-08-13] MEDS: Donepezil 10 MG Tab PO SCH (17:11)
--- NOTE | 2018-08-13 17:37 | PCM.PN ---
- General Info Date of Service: 08/13/18 Subjective Update: There were no acute events overnight. No significant issues with agitation. Patient says he feels fine and wants to go home. CK level remains very mildly elevated. Cough has improved. He has not been hypoxic. He is very weak and requires the assist of 2 to get out of bed. - Review of Systems General: Denies: Fever Pulmonary: Denies: Cough - Patient Data Vitals - Most Recent: Last Vital Signs Temp 36.2 C 08/13/18 16:00 Pulse 72 08/13/18 16:00 Resp 18 08/13/18 16:00 BP 138/55 L 08/13/18 16:00 Pulse Ox 96 08/13/18 16:00 Weight - Most Recent: 94.03 kg I&O - Last 24 Hours: Intake & Output 08/13/18 08/13/18 08/13/18 06:59 14:59 22:59 Intake Total 1923 480 Balance 1923 480 Lab Results Last 24 Hours: Laboratory Results - last 24 hr 08/13/18 Range/Units 05:00 Sodium 141 (140-148) mmol/L Potassium 3.3 L (3.6-5.2) mmol/L Chloride 107 (100-108) mmol/L Carbon Dioxide 24 (21-32) mmol/L Anion Gap 13.3 (5.0-14.0) mmol/L BUN 14 (7-18) mg/dL Creatinine 0.7 L (0.8-1.3) mg/dL Est Cr Clr Drug Dosing 95.23 mL/min Estimated GFR (MDRD) > 60 (>60) Glucose 93 (74-106) mg/dL Uric Acid 3.9 (3.5-7.2) mg/dL Calcium 8.6 (8.5-10.1) mg/dL Creatine Kinase 464 H (39-308) U/L Med Orders - Current: Current Medications Acetaminophen (Tylenol) 650 mg PO Q4H PRN PRN Reason: Pain (Mild 1-3)/fever Albuterol (Proventil Neb Soln) 2.5 mg NEB Q4H PRN PRN Reason: Shortness Of Breath/wheezing Donepezil HCl (Aricept) 10 mg PO [place] [facility] Last Admin: 08/13/18 17:11 Dose: 10 mg Enoxaparin Sodium (Lovenox) 40 mg SUBCUT DAILY [facility] Last Admin: 08/13/18 09:42 Dose: 40 mg Glipizide (Glucotrol) 2.5 mg PO ACBREAKFASTANDBED [facility] Last Admin: 08/13/18 07:46 Dose: 2.5 mg Guaifenesin/Dextromethorphan (Robitussin Dm) 10 ml PO Q4H PRN PRN Reason: Cough Haloperidol (Haldol) 5 mg PO Q4H PRN PRN Reason: Agitation Sodium Chloride (Normal Saline) 1,000 mls @ 150 mls/hr IV ASDIRECTED [facility] Last Admin: 08/13/18 06:11 Dose: 150 mls/hr Levofloxacin 250 mg/ (Levofloxacin 500 mg) 750 mg PO Q24H [facility] Last Admin: 08/13/18 14:28 Dose: 750 mg Loratadine (Claritin) 10 mg PO DAILY [facility] Last Admin: 08/13/18 09:42 Dose: 10 mg Melatonin (Melatonin) 9 mg PO BEDTIME [facility] Last Admin: 08/12/18 21:18 Dose: 9 mg Memantine (Namenda) 10 mg PO BID [facility] Last Admin: 08/13/18 09:42 Dose: 10 mg Ondansetron HCl (Zofran Odt) 4 mg PO Q6H PRN PRN Reason: Nausea able to take PO Polyethylene Glycol (Miralax) 17 gm PO DAILY PRN PRN Reason: Constipation Prednisone (Prednisone) 20 mg PO WITHBREAKFAST [facility] Last Admin: 08/13/18 07:46 Dose: 20 mg Senna/Docusate Sodium (Senna Plus) 1 tab PO BID PRN PRN Reason: Constipation Sodium Chloride (Saline Flush) 10 ml FLUSH ASDIRECTED PRN PRN Reason: Keep Vein Open Last Admin: 08/11/18 11:01 Dose: 10 ml Discontinued Medications Haloperidol Lactate (Haldol) 1 - 2 mg IVPUSH Q4H PRN PRN Reason: Agitation Last Admin: 08/11/18 18:47 Dose: 2 mg Lactated Ringer's (Ringers, Lactated) 1,000 mls @ 500 mls/hr IV ASDIRECTED [facility] Last Admin: 08/11/18 11:01 Dose: 500 mls/hr Levofloxacin/Dextrose 750 mg/ (Premix) 150 mls @ 100 mls/hr IV ONETIME ONE Stop: 08/11/18 14:36 Last Admin: 08/11/18 13:24 Dose: 100 mls/hr Potassium Chloride (Klor-Con M20) 40 meq PO ONETIME ONE Stop: 08/13/18 09:31 Last Admin: 08/13/18 09:42 Dose: 40 meq Prednisone (Prednisone) 20 mg PO ONETIME ONE Stop: 08/11/18 14:16 Last Admin: 08/11/18 15:05 Dose: 20 mg - Exam Quality Assessment: No: Supplemental Oxygen General: Alert, Cooperative, No Acute Distress. No: Oriented Lungs: Normal Respiratory Effort, Crackles (Rare right lung base) Cardiovascular: Regular Rate, Regular Rhythm GI/Abdominal Exam: Soft, No Distention Extremities: No Pedal Edema Psy/Mental Status: Alert, Normal Affect. No: Agitated - Problem List & Annotations (1) CAP (community acquired pneumonia) SNOMED Code(s): 276739602 Code(s): J18.9 - PNEUMONIA, UNSPECIFIED ORGANISM Status: Acute Current Visit: Yes Qualifiers: Laterality: right Lung location: lower lobe of lung Qualified Code(s): J18.1 - Lobar pneumonia, unspecified organism (2) Moderate dehydration SNOMED Code(s): 0413269035364 Code(s): E86.0 - DEHYDRATION Status: Acute Current Visit: Yes (3) Alzheimer's dementia without behavioral disturbance SNOMED Code(s): 54218842 Code(s): G30.9 - ALZHEIMER'S DISEASE, UNSPECIFIED; F02.80 - DEMENTIA IN OTH DISEASES CLASSD ELSWHR W/O BEHAVRL DISTURB Status: Chronic Current Visit: Yes Qualifiers: Alzheimer's disease onset: late-onset Qualified Code(s): G30.1 - Alzheimer' s disease with late onset; F02.80 - Dementia in other diseases classified elsewhere without behavioral disturbance (4) Type 2 diabetes mellitus SNOMED Code(s): 19126507 Code(s): E11.9 - TYPE 2 DIABETES MELLITUS WITHOUT COMPLICATIONS Status: Chronic Current Visit: Yes Qualifiers: Diabetes mellitus superintendent terminal insulin use: without detention use Diabetes mellitus complication status: with unspecified complications Qualified Code(s) : E11.8 - Type 2 diabetes mellitus with unspecified complications - Problem List Review Problem List Initiated/Reviewed/Updated: Yes - My Orders Last 24 Hours: My Active Orders 08/13/18 09:46 Haloperidol [Haldol] 5 mg PO Q4H PRN 08/14/18 05:00 BASIC METABOLIC PANEL,BMP [CHEM] Timed CREATINE KINASE,CK [CHEM] Timed - Plan Plan:: ASSESSMENT AND PLAN - Community-acquired pneumonia - vitals stable, not requiring oxygen and doing well other than his profound weakness. -Levofloxacin for total of 7 days -Supplement oxygen if needed -Symptomatic management of cough -Physical therapy for weakness Acute rhabdomyolysis - patient spent the night on the floor the night prior to admission and did develop mild rhabdomyolysis. CK level stable but not quite normalized. Patient has pulled out his IV. -Encourage oral intake -Repeat CK level in the morning Symmetric polyarthritis - involves wrists, knees, ankles and metatarsals. Pseudogout is suspected and clinically he is pain-free today. -Prednisone 20 mg daily for 3 days Type 2 diabetes mellitus - Sugars have been stable with only a low-dose oral medication. -Continue glipizide Alzheimer's dementia - No significant behavior issues at this time. -Melatonin at bedtime -Continue home medications Maintenance issues - - DVT prophylaxis - enoxaparin - GI prophylaxis - not indicated - Nutrition - diabetic Disposition - I would anticipate discharge to the detention tomorrow. Primary care physician - Dr Keanu Light M.D.
[2018-08-13] MEDS: Melatonin 3 MG Tab PO SCH (21:25)
[2018-08-13] MEDS: Haloperidol 5 MG Tab PO PRN (22:18)
[2018-08-14] MEDS: Haloperidol 5 MG Tab PO PRN (02:14)
[2018-08-14 08:51] VITALS: BP 141/74
[2018-08-14] MEDS ORDERED: Potassium Chloride 20 MEQ Tab.ER PO ONE (09:00)
[2018-08-14] MEDS: predniSONE 20 MG Tab PO SCH (09:41)
[2018-08-14] MEDS: Loratadine 10 MG Tab PO SCH (09:41)
[2018-08-14] MEDS: Memantine 10 MG Tab PO SCH (09:42)
[2018-08-14] MEDS: Enoxaparin 40 MG/0.4 ML Syringe SUBCUT SCH (09:42)
[2018-08-14] MEDS: glipiZIDE 5 MG Tab PO SCH (09:43)
--- NOTE | 2018-08-14 10:02 | PCM.DCSUM1 ---
Discharge Summary - Hospital Course Brief History: 78-year-old male with a history of well-controlled type 2 diabetes mellitus, advanced Alzheimer's dementia who presented with generalized weakness and cough. He is admitted for pneumonia, mild rhabdomyolysis and significant dehydration. Diagnosis: Stroke: No - Discharge Data Discharge Date: 08/14/18 Discharge Disposition: DC/Tfer to SNF 03 Condition: Good - Discharge Diagnosis/Problem(s) (1) CAP (community acquired pneumonia) SNOMED Code(s): 428357460 ICD Code: J18.9 - PNEUMONIA, UNSPECIFIED ORGANISM Status: Acute Current Visit: Yes Qualifiers: Laterality: right Lung location: lower lobe of lung Qualified Code(s): J18.1 - Lobar pneumonia, unspecified organism (2) Moderate dehydration SNOMED Code(s): 4638133305368 ICD Code: E86.0 - DEHYDRATION Status: Acute Current Visit: Yes (3) Alzheimer's dementia without behavioral disturbance SNOMED Code(s): 82697146 ICD Code: G30.9 - ALZHEIMER'S DISEASE, UNSPECIFIED; F02.80 - DEMENTIA IN OTH DISEASES CLASSD ELSWHR W/O BEHAVRL DISTURB Status: Chronic Current Visit: Yes Qualifiers: Alzheimer's disease onset: late-onset Qualified Code(s): G30.1 - Alzheimer' s disease with late onset; F02.80 - Dementia in other diseases classified elsewhere without behavioral disturbance (4) Type 2 diabetes mellitus SNOMED Code(s): 48638409 ICD Code: E11.9 - TYPE 2 DIABETES MELLITUS WITHOUT COMPLICATIONS Status: Chronic Current Visit: Yes Qualifiers: Diabetes mellitus exterminator insulin use: without detention use Diabetes mellitus complication status: with unspecified complications Qualified Code(s) : E11.8 - Type 2 diabetes mellitus with unspecified complications (5) Rhabdomyolysis SNOMED Code(s): 946431339 ICD Code: M62.82 - RHABDOMYOLYSIS Status: Acute Current Visit: Yes Qualifiers: Rhabdomyolysis type: traumatic Encounter type: initial encounter Qualified Code(s): T79.6XXA - Traumatic ischemia of muscle, initial encounter (6) Pseudogout involving multiple joints SNOMED Code(s): 784951529 ICD Code: M11.89 - OTHER SPECIFIED CRYSTAL ARTHROPATHIES, MULTIPLE SITES Status: Acute Current Visit: Yes - Patient Summary/Data Consults: Consultations 08/12/18 07:00 PT Evaluation and Treatment [CONS] Routine Please Evaluate and Treat. PT Reason for Consult: Strengthening This query below is only for informational purposes and is not editable. Hospital Course: Anam presented to the emergency room after spending the night on the floor because he was too weak to get up. He had been coughing the day before. Workup in the emergency room suggested a right lower lobe pneumonia as well as dehydration and mild lactic acidosis. CK level is mildly elevated suggesting rhabdomyolysis. He received levofloxacin in the emergency room as well as IV fluids and was admitted to the hospital for further management. Overnight his lactic acid level trended down. CK level did initially rise before trending down and normalizing the day of discharge. He has never had a fever and has not been hypoxic. Cough has essentially resolved at this point in his pneumonia treatment seems to be going quite well. He remains very weak. He requires the assist of 2 to get from the bed to the chair. I believe he would benefit from subacute rehabilitation. He will be discharged to the half-way with the plan to receive physical and occupational therapy before returning home, likely with home care. Also noted during the hospital stay was warmth and tenderness involving multiple joints including both wrists, both knees and both ankles. Pseudogout was suspected. A uric acid level was normal. He received prednisone 20 mg daily for 3 days with complete resolution of the pain, warmth and swelling. Kidney function has been stable throughout the course of the hospital stay. He has been sleeping fairly well using melatonin at bedtime and I would recommend that we continue this after hospital discharge. - Patient Instructions Diet: Diabetic Diet Activity: As Tolerated Showering/Bathing: May Shower Notify Provider of: Fever, Increased Pain, Nausea and/or Vomiting Other/Special Instructions: 1. You were in the hospital for management of right lower lobe pneumonia complicated by generalized weakness as well as rhabdomyolysis that resulted from laying on the floor overnight. All of these conditions are improving with therapy provided in the hospital. I do recommend four additional doses of levofloxacin to complete treatment for your pneumonia. You should take 750 mg once daily at 3 PM for 4 more days. 2. Accuchecks MWF before breakfast. 3. Code status - DNR/DNI. 4. Referral to PT and OT - please provide exercises for strengthening and to improve activities of daily living in the setting of acute generalized weakness following pneumonia. 5. Seek medical attention if you have fever greater than 101, severe shortness of breath or if you develop significant chest pain - Discharge Plan *PRESCRIPTION DRUG MONITORING PROGRAM REVIEWED*: Not Applicable *COPY OF PRESCRIPTION DRUG MONITORING REPORT IN PATIENT HU: Not Applicable Prescriptions/Med Rec: Acetaminophen [Tylenol] 650 mg PO Q4H PRN #100 tablet PRN Reason: Pain (Mild 1-3)/fever Levofloxacin 750 mg PO Q24H #4 tablet Melatonin 10 mg PO BEDTIME #30 tablet Home Medications: Home Meds Donepezil HCl 10 mg PO WITHDINNER 08/11/15 [History] Loratadine [Claritin] 10 mg PO DAILY 08/11/15 [History] Memantine [Namenda] 10 mg PO BID 08/11/18 [History] glipiZIDE [Glipizide ER] 2.5 mg PO ACBREAKFASTANDBED 08/11/18 [History] Acetaminophen [Tylenol] 650 mg PO Q4H PRN #100 tablet 08/14/18 [Rx] Levofloxacin 750 mg PO Q24H #4 tablet 08/14/18 [Rx] Melatonin 10 mg PO BEDTIME #30 tablet 08/14/18 [Rx] Oxygen Therapy Mode: Room Air Patient Handouts: Community-Acquired Pneumonia, Adult Referrals: Seng Colunga MD [Primary Care Provider] - (1-2 weeks - f/u hospital stay for rhabdo and pneumonia ) - Discharge Summary/Plan Comment DC Time >30 min.: Yes (45 - new half-way discharge) - Patient Data Vitals - Most Recent: Last Vital Signs Temp 35.7 C 08/14/18 08:49 Pulse 69 08/14/18 08:49 Resp 16 08/14/18 08:49 BP 141/74 H 08/14/18 08:49 Pulse Ox 95 08/14/18 08:49 Weight - Most Recent: 94.03 kg Lab Results - Last 24 hrs: Laboratory Results - last 24 hr 08/14/18 Range/Units 05:00 Sodium 140 (140-148) mmol/L Potassium 3.2 L (3.6-5.2) mmol/L Chloride 105 (100-108) mmol/L Carbon Dioxide 23 (21-32) mmol/L Anion Gap 15.2 H (5.0-14.0) mmol/L BUN 15 (7-18) mg/dL Creatinine 0.8 (0.8-1.3) mg/dL Est Cr Clr Drug Dosing 83.32 mL/min Estimated GFR (MDRD) > 60 (>60) Glucose 113 H (74-106) mg/dL Calcium 9.3 (8.5-10.1) mg/dL Creatine Kinase 285 (39-308) U/L Med Orders - Current: Current Medications Acetaminophen (Tylenol) 650 mg PO Q4H PRN PRN Reason: Pain (Mild 1-3)/fever Albuterol (Proventil Neb Soln) 2.5 mg NEB Q4H PRN PRN Reason: Shortness Of Breath/wheezing Donepezil HCl (Aricept) 10 mg PO WITHDINNER [facility] Last Admin: 08/13/18 17:11 Dose: 10 mg Enoxaparin Sodium (Lovenox) 40 mg SUBCUT DAILY [facility] Last Admin: 08/14/18 09:42 Dose: 40 mg Glipizide (Glucotrol) 2.5 mg PO ACBREAKFASTANDBED [facility] Last Admin: 08/14/18 09:43 Dose: 2.5 mg Guaifenesin/Dextromethorphan (Robitussin Dm) 10 ml PO Q4H PRN PRN Reason: Cough Haloperidol (Haldol) 5 mg PO Q4H PRN PRN Reason: Agitation Last Admin: 08/14/18 02:14 Dose: 5 mg Sodium Chloride (Normal Saline) 1,000 mls @ 150 mls/hr IV ASDIRECTED [facility] Last Admin: 08/13/18 06:11 Dose: 150 mls/hr Levofloxacin 250 mg/ (Levofloxacin 500 mg) 750 mg PO Q24H [facility] Last Admin: 08/13/18 14:28 Dose: 750 mg Loratadine (Claritin) 10 mg PO DAILY [facility] Last Admin: 08/14/18 09:41 Dose: 10 mg Melatonin (Melatonin) 9 mg PO BEDTIME [facility] Last Admin: 08/13/18 21:25 Dose: 9 mg Memantine (Namenda) 10 mg PO BID [facility] Last Admin: 08/14/18 09:42 Dose: 10 mg Ondansetron HCl (Zofran Odt) 4 mg PO Q6H PRN PRN Reason: Nausea able to take PO Polyethylene Glycol (Miralax) 17 gm PO DAILY PRN PRN Reason: Constipation Prednisone (Prednisone) 20 mg PO WITHBREAKFAST [facility] Last Admin: 08/14/18 09:41 Dose: 20 mg Senna/Docusate Sodium (Senna Plus) 1 tab PO BID PRN PRN Reason: Constipation Sodium Chloride (Saline Flush) 10 ml FLUSH ASDIRECTED PRN PRN Reason: Keep Vein Open Last Admin: 08/11/18 11:01 Dose: 10 ml Discontinued Medications Haloperidol Lactate (Haldol) 1 - 2 mg IVPUSH Q4H PRN PRN Reason: Agitation Last Admin: 08/11/18 18:47 Dose: 2 mg Lactated Ringer's (Ringers, Lactated) 1,000 mls @ 500 mls/hr IV ASDIRECTED [facility] Last Admin: 08/11/18 11:01 Dose: 500 mls/hr Levofloxacin/Dextrose 750 mg/ (Premix) 150 mls @ 100 mls/hr IV ONETIME ONE Stop: 08/11/18 14:36 Last Admin: 08/11/18 13:24 Dose: 100 mls/hr Potassium Chloride (Klor-Con M20) 40 meq PO ONETIME ONE Stop: 08/13/18 09:31 Last Admin: 08/13/18 09:42 Dose: 40 meq Potassium Chloride (Klor-Con M20) 40 meq PO ONETIME ONE Stop: 08/14/18 09:01 Last Admin: 08/14/18 09:41 Dose: 40 meq Prednisone (Prednisone) 20 mg PO ONETIME ONE Stop: 08/11/18 14:16 Last Admin: 08/11/18 15:05 Dose: 20 mg - Exam Quality Assessment: Denies: Supplemental Oxygen General: Reports: Alert, Cooperative, No Acute Distress. Denies: Oriented Lungs: Reports: Clear to Auscultation, Normal Respiratory Effort Cardiovascular: Reports: Regular Rate, Regular Rhythm GI/Abdominal Exam: Normal Bowel Sounds, Soft Extremities: No Pedal Edema Psy/Mental Status: Reports: Alert. Denies: Agitated
== END 2018-08-14 13:12 | DRG 194 ==
LOC: JP.ED 09:58 → JP.MS 13:09
PROVIDERS: ADMIT Internal Medicine; ATTEND Internal Medicine
DX: J18.1 Lobar pneumonia, unspecified organism (principal); E87.2 Acidosis; Z66 Do not resuscitate; E86.0 Dehydration; G30.1 Alzheimer's disease with late onset; F02.80 Dementia in other diseases classified elsewhere, unspecified severity, without behavioral disturbance, psychotic disturbance, mood disturbance, and anxiety; M13.0 Polyarthritis, unspecified; I10 Essential (primary) hypertension; E11.9 Type 2 diabetes mellitus without complications; Z79.84 Long term (current) use of oral hypoglycemic drugs; M11.29 Other chondrocalcinosis, multiple sites; T79.6XXA Traumatic ischemia of muscle, initial encounter; M11.89 Other specified crystal arthropathies, multiple sites; R53.1 Weakness; R05 Cough; W01.0XXA Fall on same level from slipping, tripping and stumbling without subsequent striking against object, initial encounter; Z86.73 Personal history of transient ischemic attack (TIA), and cerebral infarction without residual deficits; Z90.49 Acquired absence of other specified parts of digestive tract; Z88.0 Allergy status to penicillin
CPT/HCPCS: 36415; 71045; 80053; 81001; 82550; 83605; 84484; 85025; 96360; 96361; 99285; J7120; 80048; 84550; 97110-GP; 97162-GP; 97530-GP; A9270-GY; J1630; J1650; J1956; J7030

== ENCOUNTER 2019-12-29 16:45 | Observation (INO) | payer MEDICARE ==
[2019-12-29] MEDS ORDERED: Sodium Chloride 0.9% 10 ML Syringe FLUSH PRN (17:49)
[2019-12-29] MEDS ORDERED: Acetaminophen 500 MG Tab PO ONE (17:50)
--- NOTE | 2019-12-29 18:26 | EDM.PDOC ---
ED HPI GENERAL MEDICAL PROBLEM - General Chief Complaint: Fever Stated Complaint: WEAK Time Seen by Provider: 12/29/19 18:05 Source of Information: Reports: Patient, Family, Old Records, RN History Limitations: Reports: No Limitations - History of Present Illness INITIAL COMMENTS - FREE TEXT/NARRATIVE: 79 yo male with dementia who is cared for at home by his [facility] presents via EMS with a low grade fever and generalized weakness. He is unable to stand due to this weakness. He has an infrequent, dry cough. He has a pHx of both pneumonia and UTI's. He is chronically incontinent of urine. says he has not appeared ill. Onset: Today Onset Date: 12/29/19 Duration: Hour(s):, Constant Location: Reports: Generalized Quality: Reports: Other (weakness, no pain) Severity: Moderate Improves with: Reports: None Worsens with: Reports: Other (? time) Context: Reports: Other (See HPI) Associated Symptoms: Reports: Cough (infrequent, dry), Fever/Chills (low grade fever later today, not present this morning. ), Weakness (generalized). Denies: Chest Pain, Diaphoresis, Nausea/Vomiting, Shortness of Breath Treatments MATE FIRST: Reports: Other (see below) (none) - Related Data Allergies Allergy/AdvReac Type Severity Reaction Status Date / Time Penicillins Allergy Cardiac Verified 12/29/19 16:58 Arrest Home Meds: Home Meds Donepezil HCl 10 mg PO WITHDINNER 08/11/15 [History] Loratadine [Claritin] 10 mg PO DAILY PRN 08/11/15 [History] Memantine [Namenda] 10 mg PO BID 08/11/18 [History] glipiZIDE [Glipizide ER] 2.5 mg PO ACBREAKFASTANDBED 08/11/18 [History] Acetaminophen [Tylenol] 650 mg PO Q4H PRN #100 tablet 08/14/18 [Rx] Melatonin 10 mg PO BEDTIME #30 tablet 08/14/18 [Rx] Cholestyramine/Sucrose [Cholestyramine] 1 pack PO BID 12/29/19 [History] Past Medical History Cardiovascular History: Reports: Hypertension 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, Other (See Below) Other 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 Genitourinary History: Reports: Urinary Incontinence Musculoskeletal History: Reports: None Neurological History: Reports: Alzheimers Disease, TIA Psychiatric History: Reports: Alzheimers Disease, Dementia Endocrine/Metabolic History: Reports: Diabetes, Type II Other Endocrine/Metabolic History: diabetes, on metformin Immunologic History: Reports: None Oncologic (Cancer) History: Reports: None Dermatologic History: Reports: None - Infectious Disease History Infectious Disease History: Reports: Chicken Pox, Measles, Mumps - Past Surgical History HEENT Surgical History: Reports: Oral Surgery Other HEENT Surgeries/Procedures: dentures top and bottom GI Surgical History: Reports: Cholecystectomy Musculoskeletal Surgical History: Reports: None Social & Family History - Family History Family Medical History: Noncontributory - Tobacco Use Smoking Status *Q: Never Smoker - Caffeine Use Caffeine Use: Reports: Coffee Caffeine Use Comment: rarely - Recreational Drug Use Recreational Drug Use: No ED ROS GENERAL - Review of Systems Review Of Systems: See Below Constitutional: Reports: Fever (low grade), Malaise, Weakness (generalized). Denies: Chills, Diaphoresis HEENT: Reports: No Symptoms Respiratory: Reports: Cough (dry, infrequent). Denies: Shortness of Breath, Wheezing, Pleuritic Chest Pain, Sputum, Hemoptysis Cardiovascular: Reports: No Symptoms Endocrine: Reports: No Symptoms GI/Abdominal: Reports: No Symptoms : Reports: Incontinence (chronic) Musculoskeletal: Reports: No Symptoms Skin: Reports: No Symptoms Neurological: Reports: Other (dementia, chronic) ED EXAM, GENERAL - Physical Exam Exam: See Below Exam Limited By: No Limitations General Appearance: Alert, WD/WN, No Apparent Distress, Obese Eye Exam: Bilateral Eye: Normal Inspection Ears: Normal External Exam, Normal Canal, Hearing Grossly Normal, Normal TMs Ear Exam: Bilateral Ear: Auricle Normal, Canal Normal, TM normal Nose: Normal Inspection, No Blood Throat/Mouth: Normal Inspection, Normal Lips, Normal Oropharynx, Normal Voice, No Airway Compromise Head: Atraumatic, Normocephalic Neck: Normal Inspection Respiratory/Chest: No Respiratory Distress, Lungs Clear, Normal Breath Sounds, No Accessory Muscle Use, Other (poor inspiratory effort) Cardiovascular: Regular Rate, Rhythm, No Edema GI/Abdominal: Normal Bowel Sounds, Soft, Non-Tender, No Distention Back Exam: Normal Inspection. No: CVA Tenderness (R), CVA Tenderness (L) Extremities: Normal Inspection, Normal Range of Motion, Non-Tender, No Pedal Edema Neurological: Alert, Oriented, CN II-XII Intact, Normal Cognition, No Motor/Sensory Deficits Psychiatric: Normal Affect, Normal Mood Skin Exam: Warm, Dry, Intact, Normal Color, No Rash Course - Vital Signs Last Recorded V/S: Last Vital Signs Temp 37.8 C 12/29/19 16:57 Pulse 63 12/29/19 18:03 Resp 15 12/29/19 18:03 BP 116/45 L 12/29/19 18:03 Pulse Ox 94 L 12/29/19 18:03 - Orders/Labs/Meds Orders: Active Orders 24 hr Category Date Time Status Chest 1V Frontal [CR] Stat Exams 12/29/19 17:49 Taken CORONAVIRUS COVID-19, VANE Stat Lab 12/29/19 18:48 Ordered CULTURE BLOOD [BC] Stat Lab 12/29/19 18:05 Received Lactated Ringers [Ringers, Lactated] 1,000 ml Med 12/29/19 18:45 Active IV ASDIRECTED Sodium Chloride 0.9% [Saline Flush] Med 12/29/19 17:49 Active 10 ml FLUSH ASDIRECTED PRN Saline Lock Insert [OM.PC] Routine Oth 12/29/19 17:49 Ordered Medication Orders Lactated Ringer's (Ringers, Lactated) 1,000 mls @ 500 mls/hr IV ASDIRECTED NILE Last Admin: 12/29/19 18:52 Dose: 500 mls/hr Documented by: [id number] Sodium Chloride (Saline Flush) 10 ml FLUSH ASDIRECTED PRN PRN Reason: Keep Vein Open Last Admin: 12/29/19 18:52 Dose: 10 ml Documented by: [email or web address] Labs: Laboratory Tests 12/29/19 12/29/19 12/29/19 Range/Units 16:50 16:50 16:50 WBC 11.6 H (4.5-11.0) K/uL RBC 5.34 (4.30-5.90) M/uL Hgb 15.9 H D (12.0-15.0) g/dL Hct 49.4 (40.0-54.0) % MCV 93 (80-98) fL MCH 30 (27-31) pg MCHC 32 (32-36) % Plt Count 231 (150-400) K/uL Sodium 138 L (140-148) mmol/L Potassium 4.2 (3.6-5.2) mmol/L Chloride 104 (100-108) mmol/L Carbon Dioxide 21 (21-32) mmol/L Anion Gap 17.2 H (5.0-14.0) mmol/L BUN 13 (7-18) mg/dL Creatinine 1.1 (0.8-1.3) mg/dL Est Cr Clr Drug Dosing 61.73 mL/min Estimated GFR (MDRD) > 60 (>60) Glucose 121 H (74-106) mg/dL Calcium 9.0 (8.5-10.1) mg/dL C-Reactive Protein 0.11 (0.0-0.3) mg/dL Urine Color (YELLOW) Urine Appearance (CLEAR) Urine pH (5.0-8.0) Ur Specific Singer (1.008-1.030) Urine Protein (NEGATIVE) mg/dL Urine Glucose (UA) (NEGATIVE) mg/dL Urine Ketones (NEGATIVE) mg/dL Urine Occult Blood (NEGATIVE) Urine Nitrite (NEGATIVE) Urine Bilirubin (NEGATIVE) Urine Urobilinogen (0.2-1.0) EU/dL Ur Leukocyte Esterase (NEGATIVE) Urine RBC (0-5) Urine WBC (0-5) Ur Epithelial Cells Amorphous Sediment Urine Bacteria Urine Mucus 12/29/19 Range/Units 18:29 WBC (4.5-11.0) K/uL RBC (4.30-5.90) M/uL Hgb (12.0-15.0) g/dL Hct (40.0-54.0) % MCV (80-98) fL MCH (27-31) pg MCHC (32-36) % Plt Count (150-400) K/uL Sodium (140-148) mmol/L Potassium (3.6-5.2) mmol/L Chloride (100-108) mmol/L Carbon Dioxide (21-32) mmol/L Anion Gap (5.0-14.0) mmol/L BUN (7-18) mg/dL Creatinine (0.8-1.3) mg/dL Est Cr Clr Drug Dosing mL/min Estimated GFR (MDRD) (>60) Glucose (74-106) mg/dL Calcium (8.5-10.1) mg/dL C-Reactive Protein (0.0-0.3) mg/dL Urine Color Yellow (YELLOW) Urine Appearance Clear (CLEAR) Urine pH 5.0 (5.0-8.0) Ur Specific Singer 1.025 (1.008-1.030) Urine Protein Negative (NEGATIVE) mg/dL Urine Glucose (UA) 100 H (NEGATIVE) mg/dL Urine Ketones Negative (NEGATIVE) mg/dL Urine Occult Blood Negative (NEGATIVE) Urine Nitrite Negative (NEGATIVE) Urine Bilirubin Negative (NEGATIVE) Urine Urobilinogen 0.2 (0.2-1.0) EU/dL Ur Leukocyte Esterase Negative (NEGATIVE) Urine RBC 0-5 (0-5) Urine WBC 0-5 (0-5) Ur Epithelial Cells Few Amorphous Sediment Not seen Urine Bacteria Many Urine Mucus Not seen Meds: Medications Generic Name Dose Route Start Last Admin Trade Name Freq PRN Reason Stop Dose Admin Lactated Ringer's 1,000 mls @ 500 mls/hr 12/29/19 18:45 12/29/19 18:52 Ringers, Lactated IV 500 mls/hr ASDIRECTED NILE Administration Sodium Chloride 10 ml 12/29/19 17:49 12/29/19 18:52 Saline Flush FLUSH 10 ml ASDIRECTED PRN Administration Keep Vein Open Discontinued Medications Generic Name Dose Route Start Last Admin Trade Name Freq PRN Reason Stop Dose Admin Acetaminophen 1,000 mg 12/29/19 17:50 12/29/19 18:51 Tylenol Extra Strength PO 12/29/19 17:51 1,000 mg ONETIME ONE Administration - Radiology Interpretation Free Text/Narrative:: CXR-no acute changes apparent Departure - Departure Time of Disposition: 18:54 Disposition: Refer to Observation Condition: Fair Clinical Impression: Weakness, Low grade fever - Discharge Information *PRESCRIPTION DRUG MONITORING PROGRAM REVIEWED*: No *COPY OF PRESCRIPTION DRUG MONITORING REPORT IN PATIENT HU: No Referrals: Seng Colunga MD [Primary Care Provider] - Forms: ED Department Discharge Sepsis Event Note (ED) - Evaluation Sepsis Screening Result: No Definite Risk - Focused Exam Vital Signs: Vital Signs Temp Pulse Resp BP Pulse Ox 12/29/19 18:03 63 15 116/45 L 94 L 12/29/19 17:23 62 13 120/52 L 94 L 12/29/19 16:57 37.8 C 63 17 139/61 95 12/29/19 16:48 37.8 C 63 17 139/61 95 - My Orders Last 24 Hours: My Active Orders 12/29/19 17:49 Chest 1V Frontal [CR] Stat Sodium Chloride 0.9% [Saline Flush] 10 ml FLUSH ASDIRECTED PRN Saline Lock Insert [OM.PC] Routine 12/29/19 18:05 CULTURE BLOOD [BC] Stat 12/29/19 18:45 Lactated Ringers [Ringers, Lactated] 1,000 ml IV ASDIRECTED 12/29/19 18:48 CORONAVIRUS COVID-19, [facility]ANE Stat - Assessment/Plan Last 24 Hours: My Active Orders 12/29/19 17:49 Chest 1V Frontal [CR] Stat Sodium Chloride 0.9% [Saline Flush] 10 ml FLUSH ASDIRECTED PRN Saline Lock Insert [OM.PC] Routine 12/29/19 18:05 CULTURE BLOOD [BC] Stat 12/29/19 18:45 Lactated Ringers [Ringers, Lactated] 1,000 ml IV ASDIRECTED 12/29/19 18:48 CORONAVIRUS COVID-19, VANE Stat
[2019-12-29] MEDS ORDERED: Lactated Ringers 1,000 ML IV SCH (18:45)
[2019-12-29] MEDS ORDERED: Sodium Chloride 0.9% 1,000 ML IV SCH ×2 (19:15→21:08)
--- NOTE | 2019-12-29 21:03 | PCM.HP.2 ---
H&P History of Present Illness - General Date of Service: 12/29/19 Admit Problem/Dx: Admission Diagnosis/Problem Admission Diagnosis/Problem Weakness Source of Information: Patient, Family ( of 27 years.) History Limitations: Reports: Other (Alzheimer's dementia without behavior disturbance) - History of Present Illness Initial Comments - Free Text/Narative: chief complaint: Weakness Mrs. Buitrago lives with his at [facility]. She is his primary sole stitcher hand. She reports Anam was okay yesterday able to eat and drink and walk by himself or with his rolling walker. This morning he was unable to stand or walk and didn't want to eat or drink. His reports "he gets like this when he has pneumonia or a bladder infection. She waited til her Granddaughters came to bring him to the ER this evening. denies any nausea, vomiting, diarrhea, fever or chills. had a cough. Onset of Symptoms: Reports: Today Duration of Symptoms: Reports: Getting Worse Location: Reports: Generalized (weakness) Quality: Reports: Same as Previous Episode (similar to previous pneumonia or bladder infections) Severity: Moderate Improves with: Reports: None Worsens with: Reports: None Associated Symptoms: Reports: Cough, Weakness - Related Data Allergies/Adverse Reactions: Allergies Allergy/AdvReac Type Severity Reaction Status Date / Time Penicillins Allergy Cardiac Verified 12/29/19 16:58 Arrest Home Medications: Home Meds Donepezil HCl 10 mg PO WITHDINNER 08/11/15 [History] Loratadine [Claritin] 10 mg PO DAILY PRN 08/11/15 [History] Memantine [Namenda] 10 mg PO BID 08/11/18 [History] glipiZIDE [Glipizide ER] 2.5 mg PO ACBREAKFASTANDBED 08/11/18 [History] Acetaminophen [Tylenol] 650 mg PO Q4H PRN #100 tablet 08/14/18 [Rx] Melatonin 10 mg PO BEDTIME #30 tablet 08/14/18 [Rx] Cholestyramine/Sucrose [Cholestyramine] 1 pack PO BID 12/29/19 [History] Past Medical History Cardiovascular History: Reports: Hypertension 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, Other (See Below) Other 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 Genitourinary History: Reports: Urinary Incontinence Musculoskeletal History: Reports: None Neurological History: Reports: Alzheimers Disease, TIA Psychiatric History: Reports: Alzheimers Disease, Dementia Endocrine/Metabolic History: Reports: Diabetes, Type II Other Endocrine/Metabolic History: diabetes, on metformin Immunologic History: Reports: None Oncologic (Cancer) History: Reports: None Dermatologic History: Reports: None - Infectious Disease History Infectious Disease History: Reports: Chicken Pox, Measles, Mumps - Past Surgical History HEENT Surgical History: Reports: Oral Surgery Other HEENT Surgeries/Procedures: dentures top and bottom GI Surgical History: Reports: Cholecystectomy Musculoskeletal Surgical History: Reports: None Social & Family History - Family History Family Medical History: Noncontributory - Tobacco Use Smoking Status *Q: Never Smoker - Caffeine Use Caffeine Use: Reports: Coffee Caffeine Use Comment: rarely - Recreational Drug Use Recreational Drug Use: No - Living Situation & Occupation Living situation: Reports: with Family (lives with his second of 27 years at [facility] in [facility]. 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), Extended Care Facility Occupation: Disabled H&P Review of Systems - Review of Systems: Review Of Systems: See Below General: Reports: Malaise, Weakness, Fatigue, Decreased Appetite HEENT: Reports: Other (full dentures) Pulmonary: Reports: Cough Cardiovascular: Reports: No Symptoms Gastrointestinal: Reports: No Symptoms Genitourinary: Reports: Incontinence (chronic-wears adult diapers) Musculoskeletal: Reports: No Symptoms Skin: Reports: No Symptoms Psychiatric: Reports: Other (alzheimer's dementia) Neurological: Reports: Difficulty Walking, Weakness Hematologic/Lymphatic: Reports: No Symptoms Immunologic: Reports: No Symptoms Exam - Exam Exam: See Below - Vital Signs Vital Signs: Last Vital Signs Temp 37.8 C 12/29/19 16:57 Pulse 63 12/29/19 18:03 Resp 15 12/29/19 18:03 BP 116/45 L 12/29/19 18:03 Pulse Ox 94 L 12/29/19 18:03 Weight: 102.058 kg - Exam Quality Assessment: DVT Prophylaxis General: Alert, Cooperative, Other (pleasant neat and well groomed) HEENT: PERRLA, Conjunctiva Clear, EACs Clear, Hearing Intact, Mucosa Moist & [place], Nares Patent, Other (full dentures) Neck: Supple, Trachea Midline, 2 Lungs: Clear to Auscultation, Normal Respiratory Effort Cardiovascular: Regular Rate, Regular Rhythm GI/Abdominal Exam: Normal Bowel Sounds, Soft, Non-Tender, No Organomegaly, No Distention, No Abnormal Bruit, No Mass, Pelvis Stable (Male) Exam: No Hernia, Normal Inspection, Other (uncircumcised male) Rectal (Males) Exam: Deferred Back Exam: Normal Inspection, Full Range of Motion, NT Extremities: Normal Inspection, Normal Range of Motion, Non-Tender, No Pedal Edema, Normal Capillary Refill Peripheral Pulses: 2+: Radial (L), Radial (R) Skin: Warm, Dry, Intact Neurological: Cranial Nerves Intact, Reflexes Equal Bilateral, Strength Equal Bilateral, Normal Speech, Normal Tone Neuro Extensive - Mental Status: Alert, Normal Mood/Affect Neuro Extensive - Motor, Sensory, Reflexes: Other (leg weakness) Psychiatric: Alert, Normal Affect, Normal Mood - Patient Data Lab Results Last 24 hrs: Laboratory Results - last 24 hr 12/29/19 12/29/19 12/29/19 Range/Units 16:50 16:50 16:50 WBC 11.6 H (4.5-11.0) K/uL RBC 5.34 (4.30-5.90) M/uL Hgb 15.9 H D (12.0-15.0) g/dL Hct 49.4 (40.0-54.0) % MCV 93 (80-98) fL MCH 30 (27-31) pg MCHC 32 (32-36) % Plt Count 231 (150-400) K/uL Sodium 138 L (140-148) mmol/L Potassium 4.2 (3.6-5.2) mmol/L Chloride 104 (100-108) mmol/L Carbon Dioxide 21 (21-32) mmol/L Anion Gap 17.2 H (5.0-14.0) mmol/L BUN 13 (7-18) mg/dL Creatinine 1.1 (0.8-1.3) mg/dL Est Cr Clr Drug Dosing 61.73 mL/min Estimated GFR (MDRD) > 60 (>60) Glucose 121 H (74-106) mg/dL Calcium 9.0 (8.5-10.1) mg/dL C-Reactive Protein 0.11 (0.0-0.3) mg/dL Urine Color (YELLOW) Urine Appearance (CLEAR) Urine pH (5.0-8.0) Ur Specific [place] (1.008-1.030) Urine Protein (NEGATIVE) mg/dL Urine Glucose (UA) (NEGATIVE) mg/dL Urine Ketones (NEGATIVE) mg/dL Urine Occult Blood (NEGATIVE) Urine Nitrite (NEGATIVE) Urine Bilirubin (NEGATIVE) Urine Urobilinogen (0.2-1.0) EU/dL Ur Leukocyte Esterase (NEGATIVE) Urine RBC (0-5) Urine WBC (0-5) Ur Epithelial Cells Amorphous Sediment Urine Bacteria Urine Mucus SARS-CoV-2 RNA (VANE) (NEGATIVE) 12/29/19 12/29/19 Range/Units 18:29 19:10 WBC (4.5-11.0) K/uL RBC (4.30-5.90) M/uL Hgb (12.0-15.0) g/dL Hct (40.0-54.0) % MCV (80-98) fL MCH (27-31) pg MCHC (32-36) % Plt Count (150-400) K/uL Sodium (140-148) mmol/L Potassium (3.6-5.2) mmol/L Chloride (100-108) mmol/L Carbon Dioxide (21-32) mmol/L Anion Gap (5.0-14.0) mmol/L BUN (7-18) mg/dL Creatinine (0.8-1.3) mg/dL Est Cr Clr Drug Dosing mL/min Estimated GFR (MDRD) (>60) Glucose (74-106) mg/dL Calcium (8.5-10.1) mg/dL C-Reactive Protein (0.0-0.3) mg/dL Urine Color Yellow (YELLOW) Urine Appearance Clear (CLEAR) Urine pH 5.0 (5.0-8.0) Ur Specific [place] 1.025 (1.008-1.030) Urine Protein Negative (NEGATIVE) mg/dL Urine Glucose (UA) 100 H (NEGATIVE) mg/dL Urine Ketones Negative (NEGATIVE) mg/dL Urine Occult Blood Negative (NEGATIVE) Urine Nitrite Negative (NEGATIVE) Urine Bilirubin Negative (NEGATIVE) Urine Urobilinogen 0.2 (0.2-1.0) EU/dL Ur Leukocyte Esterase Negative (NEGATIVE) Urine RBC 0-5 (0-5) Urine WBC 0-5 (0-5) Ur Epithelial Cells Few Amorphous Sediment Not seen Urine Bacteria Many Urine Mucus Not seen SARS-CoV-2 RNA (VANE) Negative (NEGATIVE) Result Diagrams: 12/29/19 16:50 12/29/19 16:50 Sepsis Event Note - Evaluation Sepsis Screening Result: No Definite Risk - Focused Exam Vital Signs: Vital Signs Temp Pulse Resp BP Pulse Ox 12/29/19 18:03 63 15 116/45 L 94 L 12/29/19 17:23 62 13 120/52 L 94 L 12/29/19 16:57 37.8 C 63 17 139/61 95 12/29/19 16:48 37.8 C 63 17 139/61 95 - Problem List (1) Weakness SNOMED Code(s): 01580714 ICD Code: R53.1 - WEAKNESS Status: Acute Priority: High Current Visit: Yes (2) Alzheimer's dementia without behavioral disturbance SNOMED Code(s): 21072830 ICD Code: G30.9 - ALZHEIMER'S DISEASE, UNSPECIFIED; F02.80 - DEMENTIA IN OTH DISEASES CLASSD ELSWHR W/O BEHAVRL DISTURB Status: Chronic Priority: High Current Visit: Yes Qualifiers: Alzheimer's disease onset: late-onset Qualified Code(s): G30.1 - Alzheimer's disease with late onset; F02.80 - Dementia in other diseases classified elsewhere without behavioral disturbance (3) Diabetes type 2, controlled SNOMED Code(s): 40737484, 499946335 ICD Code: E11.9 - TYPE 2 DIABETES MELLITUS WITHOUT COMPLICATIONS Status: Acute Priority: Medium Current Visit: Yes Qualifiers: Diabetes mellitus buttermaker helper insulin use: without buttermaker helper use Diabetes mellitus complication status: without complication Qualified Code(s): E11.9 - Type 2 diabetes mellitus without complications Problem List Initiated/Reviewed/Updated: Yes Orders Last 24hrs: Active Orders 24 hr Category Date Time Status Patient Status Manage Transfer [TRANSFER] Routine ADT 12/29/19 20:38 Ordered Chest 1V Frontal [CR] Stat Exams 12/29/19 17:49 Taken CULTURE BLOOD [BC] Stat Lab 12/29/19 18:05 Received Lactated Ringers [Ringers, Lactated] 1,000 ml Med 12/29/19 18:45 Active IV ASDIRECTED Sodium Chloride 0.9% [Normal Saline] 1,000 ml Med 12/29/19 19:15 Active IV ASDIRECTED Sodium Chloride 0.9% [Saline Flush] Med 12/29/19 17:49 Active 10 ml FLUSH ASDIRECTED PRN Saline Lock Insert [OM.PC] Routine Oth 12/29/19 17:49 Ordered Resuscitation Status Routine Resus Stat 12/29/19 20:40 Ordered Medication Orders Lactated Ringer's (Ringers, Lactated) 1,000 mls @ 500 mls/hr IV ASDIRECTED NILE Last Admin: 12/29/19 18:52 Dose: 500 mls/hr Documented by: CRESCENCIO Sodium Chloride (Normal Saline) 1,000 mls @ 500 mls/hr IV ASDIRECTED NILE Sodium Chloride (Saline Flush) 10 ml FLUSH ASDIRECTED PRN PRN Reason: Keep Vein Open Last Admin: 12/29/19 18:52 Dose: 10 ml Documented by: [id number] Assessment/Plan Comment:: ASSESSMENT AND PLAN OF CARE: WEAKNESS Weakness- Mr. Buitrago is unable to walk today, He usually walks with rolling walker or short distances in the home without a walker. reports symptoms similar to previous pneumonia and urinary tract infections. Labs CBC WBC 11.6, hgb 15.9, hct 49.4, plt 231, Na+ 138, K+ 4.2, cl 104, anion gap 17.2, bun 13, cr. 1.1, glucose 121, urine negative, Covid test negative. Chest X-ray pending formal reading. blood culture pending. -IV Rocephin 1 gram every 24 hours -IV fluids for hydration - Normal Saline at 125 ml/.hr -Medication for pain and nausea -IV Protonix 40 mg daily -consult to PT for ambulation/strengthen -am labs CBC, BMP Alzheimer's dementia without behavior disturbance -continue outpatient medications -monitor closely Diabetes type 2- reports his normal blood glucose range is 100's -blood glucose testing before meals and at bedtime -Glipizide ER 2.5 mg po bid MAINTENANCE ISSUES -DVT Prophylaxis Lovenox 40 mg subcut daily -GI prophylaxis- Protonix as above -Campos catheter not indicated-chronic incontinence -Nutrition regular diet -Nicotine dependence non-smoker CODE STATUS DNR/DNI ADMISSION This patient will be admitted to observation status, expect no more than one night hospital stay for evaluation and management of problems outline above. DISPOSITION anticipate discharge to at [facility], [place]. after the hospital stay. PRIMARY CARE PROVIDER Dr. Colunga HOSPITALIST Dr. Light - Mortality Measure Prognosis:: Good
[2019-12-29] MEDS ORDERED: Acetaminophen 325 MG Tab PO PRN ×2 (21:08)
[2019-12-29] MEDS ORDERED: Non-Formulary Medication 1 Each (Melatonin [Melatonin] 10 MG) PO SCH (21:08)
[2019-12-29] MEDS ORDERED: oxyCODONE 5 MG Tab PO PRN (21:08)
[2019-12-29] MEDS ORDERED: LORazepam 2 MG/ML SDV IV PRN (21:08)
[2019-12-29] MEDS ORDERED: Morphine 2 MG/ML SYRINGE IVPUSH PRN (21:08)
[2019-12-29] MEDS ORDERED: Albuterol 0.083% 2.5 MG/3 ML Neb Soln NEB PRN (21:08)
[2019-12-29] MEDS ORDERED: Bisacodyl 5 MG Tab PO PRN (21:08)
[2019-12-29] MEDS ORDERED: Docusate Sodium 100 MG Cap PO PRN (21:08)
[2019-12-29] MEDS ORDERED: Ondansetron 4 MG Tab.DIS PO PRN (21:08)
[2019-12-29] MEDS ORDERED: cefTRIAXone 1 GM in Sodium Chloride 0.9% 50 ML IV SCH (21:30)
[2019-12-29] MEDS ORDERED: Melatonin 3 MG Tab PO SCH (22:00)
[2019-12-30] MEDS ORDERED: glipiZIDE 5 MG Tab PO SCH (08:00)
[2019-12-30] MEDS: Enoxaparin 40 MG/0.4 ML Syringe SUBCUT SCH (08:27)
[2019-12-30] MEDS ORDERED: Memantine 10 MG Tab PO SCH (09:00)
--- NOTE | 2019-12-30 09:05 | CR ---
CHEST: Portable 12/29/2019 at 6:06 PM CLINICAL HISTORY:Fever COMPARISON:None available at this time FINDINGS: There is some prominence of lung markings in both lung bases. There is patchy density in the right infrahilar region. Heart size and pulmonary vascularity are normal. There are atherosclerotic changes in the aorta. Impression: Streaky densities in both lung bases are felt to be chronic. Patchy right infrahilar density may represent the some scarring and atelectasis. Early infiltrate is not excluded .
[2019-12-30] MEDS ORDERED: glipiZIDE 5 MG Tab.ER PO SCH (09:10)
--- NOTE | 2019-12-30 12:23 | PCM.PN ---
- General Info Date of Service: 12/30/19 Subjective Update: No acute events overnight. Patient has dementia so his history is limited but currently he tells me that he feels well. He does not have any pains. His appetite is been good. He tells me that his strength is excellent but he does require the assist of 2 to get in and out of bed. He did eat very well today. He has not had any fevers. No behavior issues. - Patient Data Vitals - Most Recent: Last Vital Signs Temp 36.7 C 12/30/19 10:38 Pulse 60 12/30/19 10:38 Resp 16 12/30/19 10:38 BP 112/55 L 12/30/19 10:38 Pulse Ox 97 12/30/19 10:38 Weight - Most Recent: 100.244 kg I&O - Last 24 Hours: Intake & Output 12/29/19 12/30/19 12/30/19 22:59 06:59 14:59 Intake Total 100 600 Output Total 100 Balance 100 500 Lab Results Last 24 Hours: Laboratory Results - last 24 hr 12/29/19 12/29/19 12/29/19 Range/Units 16:50 16:50 16:50 WBC 11.6 H (4.5-11.0) K/uL RBC 5.34 (4.30-5.90) M/uL Hgb 15.9 H D (12.0-15.0) g/dL Hct 49.4 (40.0-54.0) % MCV 93 (80-98) fL MCH 30 (27-31) pg MCHC 32 (32-36) % Plt Count 231 (150-400) K/uL Neut % (Auto) (36-66) % Lymph % (Auto) (24-44) % [place] % (Auto) (2-6) % Eos % (Auto) (2-4) % Baso % (Auto) (0-1) % Sodium 138 L (140-148) mmol/L Potassium 4.2 (3.6-5.2) mmol/L Chloride 104 (100-108) mmol/L Carbon Dioxide 21 (21-32) mmol/L Anion Gap 17.2 H (5.0-14.0) mmol/L BUN 13 (7-18) mg/dL Creatinine 1.1 (0.8-1.3) mg/dL Est Cr Clr Drug Dosing 61.73 mL/min Estimated GFR (MDRD) > 60 (>60) Glucose 121 H (74-106) mg/dL POC Glucose (74-106) MG/DL Calcium 9.0 (8.5-10.1) mg/dL C-Reactive Protein 0.11 (0.0-0.3) mg/dL Urine Color (YELLOW) Urine Appearance (CLEAR) Urine pH (5.0-8.0) Ur Specific [place] (1.008-1.030) Urine Protein (NEGATIVE) mg/dL Urine Glucose (UA) (NEGATIVE) mg/dL Urine Ketones (NEGATIVE) mg/dL Urine Occult Blood (NEGATIVE) Urine Nitrite (NEGATIVE) Urine Bilirubin (NEGATIVE) Urine Urobilinogen (0.2-1.0) EU/dL Ur Leukocyte Esterase (NEGATIVE) Urine RBC (0-5) Urine WBC (0-5) Ur Epithelial Cells Amorphous Sediment Urine Bacteria Urine Mucus SARS-CoV-2 RNA (VANE) (NEGATIVE) 12/29/19 12/29/19 12/30/19 Range/Units 18:29 19:10 04:20 WBC 7.5 (4.5-11.0) K/uL RBC 4.69 (4.30-5.90) M/uL Hgb 14.4 (12.0-15.0) g/dL Hct 43.6 (40.0-54.0) % MCV 93 (80-98) fL MCH 31 (27-31) pg MCHC 33 (32-36) % Plt Count 194 (150-400) K/uL Neut % (Auto) 54 (36-66) % Lymph % (Auto) 33 (24-44) % [place] % (Auto) 11 H (2-6) % Eos % (Auto) 2 (2-4) % Baso % (Auto) 0 (0-1) % Sodium (140-148) mmol/L Potassium (3.6-5.2) mmol/L Chloride (100-108) mmol/L Carbon Dioxide (21-32) mmol/L Anion Gap (5.0-14.0) mmol/L BUN (7-18) mg/dL Creatinine (0.8-1.3) mg/dL Est Cr Clr Drug Dosing mL/min Estimated GFR (MDRD) (>60) Glucose (74-106) mg/dL POC Glucose (74-106) MG/DL Calcium (8.5-10.1) mg/dL C-Reactive Protein (0.0-0.3) mg/dL Urine Color Yellow (YELLOW) Urine Appearance Clear (CLEAR) Urine pH 5.0 (5.0-8.0) Ur Specific [place] 1.025 (1.008-1.030) Urine Protein Negative (NEGATIVE) mg/dL Urine Glucose (UA) 100 H (NEGATIVE) mg/dL Urine Ketones Negative (NEGATIVE) mg/dL Urine Occult Blood Negative (NEGATIVE) Urine Nitrite Negative (NEGATIVE) Urine Bilirubin Negative (NEGATIVE) Urine Urobilinogen 0.2 (0.2-1.0) EU/dL Ur Leukocyte Esterase Negative (NEGATIVE) Urine RBC 0-5 (0-5) Urine WBC 0-5 (0-5) Ur Epithelial Cells Few Amorphous Sediment Not seen Urine Bacteria Many Urine Mucus Not seen SARS-CoV-2 RNA (VANE) Negative (NEGATIVE) 12/30/19 12/30/19 Range/Units 04:20 07:39 WBC (4.5-11.0) K/uL RBC (4.30-5.90) M/uL Hgb (12.0-15.0) g/dL Hct (40.0-54.0) % MCV (80-98) fL MCH (27-31) pg MCHC (32-36) % Plt Count (150-400) K/uL Neut % (Auto) (36-66) % Lymph % (Auto) (24-44) % [place] % (Auto) (2-6) % Eos % (Auto) (2-4) % Baso % (Auto) (0-1) % Sodium 139 L (140-148) mmol/L Potassium 3.8 (3.6-5.2) mmol/L Chloride 105 (100-108) mmol/L Carbon Dioxide 23 (21-32) mmol/L Anion Gap 14.8 H (5.0-14.0) mmol/L BUN 10 (7-18) mg/dL Creatinine 0.8 (0.8-1.3) mg/dL Est Cr Clr Drug Dosing 82.36 mL/min Estimated GFR (MDRD) > 60 (>60) Glucose 136 H (74-106) mg/dL POC Glucose 138 H (74-106) MG/DL Calcium 8.6 (8.5-10.1) mg/dL C-Reactive Protein (0.0-0.3) mg/dL Urine Color (YELLOW) Urine Appearance (CLEAR) Urine pH (5.0-8.0) Ur Specific [place] (1.008-1.030) Urine Protein (NEGATIVE) mg/dL Urine Glucose (UA) (NEGATIVE) mg/dL Urine Ketones (NEGATIVE) mg/dL Urine Occult Blood (NEGATIVE) Urine Nitrite (NEGATIVE) Urine Bilirubin (NEGATIVE) Urine Urobilinogen (0.2-1.0) EU/dL Ur Leukocyte Esterase (NEGATIVE) Urine RBC (0-5) Urine WBC (0-5) Ur Epithelial Cells Amorphous Sediment Urine Bacteria Urine Mucus SARS-CoV-2 RNA (VANE) (NEGATIVE) Med Orders - Current: Current Medications Acetaminophen (Tylenol) 650 mg PO Q4H PRN PRN Reason: Pain (Mild 1-3)/fever Acetaminophen (Tylenol) 650 mg PO Q4H PRN PRN Reason: Pain (Mild 1-3)/fever Albuterol (Proventil Neb Soln) 2.5 mg NEB Q4H PRN PRN Reason: Shortness Of Breath/wheezing Bisacodyl (Dulcolax) 5 mg PO DAILY PRN PRN Reason: Constipation Docusate Sodium (Colace) 100 mg PO BID PRN PRN Reason: Constipation Donepezil HCl (Aricept) 10 mg PO [place] [facility] Enoxaparin Sodium (Lovenox) 40 mg SUBCUT DAILY [facility] Last Admin: 12/30/19 08:27 Dose: 40 mg Documented by: Glipizide (Glucotrol) 2.5 mg PO DAILY@0800 [facility] Last Admin: 12/30/19 08:27 Dose: 2.5 mg Documented by: Sodium Chloride (Normal Saline) 1,000 mls @ 500 mls/hr IV ASDIRECTED [facility] Last Admin: 12/29/19 20:57 Dose: 500 mls/hr Documented by: Sodium Chloride (Normal Saline) 1,000 mls @ 125 mls/hr IV ASDIRECTED [facility] Last Admin: 12/30/19 04:01 Dose: 125 mls/hr Documented by: Ceftriaxone Sodium 1 gm/ (Sodium Chloride) 50 mls @ 100 mls/hr IV Q24H [facility] Lorazepam (Ativan) 1 mg IV Q6H PRN PRN Reason: Nausea/Vomiting Melatonin (Melatonin) 9 mg PO BEDTIME [facility] Last Admin: 12/29/19 23:52 Dose: 9 mg Documented by: Memantine (Namenda) 10 mg PO BID [facility] Last Admin: 12/30/19 08:27 Dose: 10 mg Documented by: Morphine Sulfate (Morphine) 2 mg IVPUSH Q2H PRN PRN Reason: Pain (severe 7-10) Ondansetron HCl (Zofran Odt) 4 mg PO Q6H PRN PRN Reason: Nausea able to take PO Oxycodone HCl (Oxycodone) 5 mg PO Q4H PRN PRN Reason: Pain (moderate 4-6) Discontinued Medications Acetaminophen (Tylenol Extra Strength) 1,000 mg PO ONETIME ONE Stop: 12/29/19 17:51 Last Admin: 12/29/19 18:51 Dose: 1,000 mg Documented by: Lactated Ringer's (Ringers, Lactated) 1,000 mls @ 500 mls/hr IV ASDIRECTED [facility] Last Admin: 12/29/19 18:52 Dose: 500 mls/hr Documented by: Ceftriaxone Sodium 1 gm/ (Sodium Chloride) 50 mls @ 100 mls/hr IV Q24H [facility] Last Admin: 12/29/19 21:40 Dose: 100 mls/hr Documented by: Non-Formulary Medication (Melatonin [Melatonin]) 10 mg PO BEDTIME [facility] Last Admin: 12/29/19 23:53 Dose: Not Given Documented by: Sodium Chloride (Saline Flush) 10 ml FLUSH ASDIRECTED PRN PRN Reason: Keep Vein Open Last Admin: 12/29/19 18:52 Dose: 10 ml Documented by: - Exam Quality Assessment: No: Supplemental Oxygen General: Alert, Cooperative, No Acute Distress. No: Oriented Lungs: Clear to Auscultation, Normal Respiratory Effort Cardiovascular: Regular Rate, Regular Rhythm GI/Abdominal Exam: Soft, No Distention Extremities: No Pedal Edema. No: Increased Warmth Skin: Warm, Dry Psy/Mental Status: Alert, Normal Affect Sepsis Event Note - Evaluation Sepsis Screening Result: No Definite Risk - Focused Exam Vital Signs: Vital Signs Temp Pulse Resp BP Pulse Ox 12/30/19 10:38 36.7 C 60 16 112/55 L 97 12/30/19 07:11 36.5 C 59 L 16 127/58 L 95 12/30/19 03:54 36.4 C 57 L 18 134/57 L 97 - Problem List Review Problem List Initiated/Reviewed/Updated: Yes - My Orders Last 24 Hours: My Active Orders 12/30/19 09:31 Discontinue Telemetry Monitoring [Cardiac Monitoring Discontinue] [RC] Click to Edit 12/30/19 12:21 Peripheral IV Discontinue [OM.PC] Routine 12/30/19 21:00 Cefdinir [Omnicef] 300 mg PO BID - Plan Plan:: ASSESSMENT AND PLAN - Complicated urinary tract infection-recurrent acute cystitis without hematuria. Many bacteria noted. No culture set up at the time of admission. He is stable but quite weak. He pulled out his IV earlier -Change antibiotics to cefdinir -Medication for pain and nausea -Physical therapy to improve strength Alzheimer's dementia without behavior disturbance-no issues so far. -continue outpatient medications -Melatonin at bedtime Diabetes type 2-sugars controlled so far. -blood glucose testing before meals and at bedtime -Glipizide ER 2.5 mg po bid MAINTENANCE ISSUES -DVT Prophylaxis Lovenox 40 mg subcut daily -GI prophylaxis-not indicated -Nutrition regular diet ADMISSION This patient will be admitted to observation status, expect no more than one night hospital stay for evaluation and management of problems outline above. DISPOSITION anticipate discharge to after the hospital stay. Julian Light MD
[2019-12-30] MEDS: Donepezil 10 MG **PTOM PO SCH (16:55)
[2019-12-30] MEDS ORDERED: Donepezil 10 MG Tab PO SCH (17:00)
[2019-12-30] MEDS: MELATONIN 10 MG PO SCH (20:36)
[2019-12-30] MEDS: MEMANTINE 10 MG PO SCH (20:36)
[2019-12-30] MEDS: Cefdinir 300 MG Cap PO SCH (20:37)
[2019-12-30] MEDS ORDERED: cefTRIAXone 1 GM in Sodium Chloride 0.9% 50 ML IV SCH (21:00)
[2019-12-31] MEDS: GLIPIZIDE 5 MG PO SCH (08:25)
[2019-12-31] MEDS: Enoxaparin 40 MG/0.4 ML Syringe SUBCUT SCH (08:25)
[2019-12-31] MEDS: Cefdinir 300 MG Cap PO SCH ×2 (08:25→20:29)
[2019-12-31] MEDS: MEMANTINE 10 MG PO SCH ×2 (08:25→20:28)
--- NOTE | 2019-12-31 11:43 | PCM.PN ---
- General Info Date of Service: 12/31/19 Subjective Update: No acute events overnight. Vitals have been stable. Appetite has been good. Strength is better today but he still requires the assist of at least 1 to get around. Tolerating antibiotics. No fevers. He says he is feeling well with no nausea or abdominal pain. Functional Status: Reports: Pain Controlled, Tolerating Diet - Review of Systems General: Reports: Weakness - Patient Data Vitals - Most Recent: Last Vital Signs Temp 36.8 C 12/31/19 11:06 Pulse 65 12/31/19 11:06 Resp 18 12/31/19 11:06 BP 112/41 L 12/31/19 11:06 Pulse Ox 95 12/31/19 11:06 Weight - Most Recent: 100.244 kg I&O - Last 24 Hours: Intake & Output 12/30/19 12/31/19 12/31/19 22:59 06:59 14:59 Intake Total 1340 240 Balance 1340 240 Jorden Results Last 24 Hours: Microbiology 12/29/19 18:05 Aerobic Blood Culture - Preliminary Blood - Arm, Right NO GROWTH AFTER 1 DAY Anaerobic Blood Culture - Preliminary NO GROWTH AFTER 1 DAY Med Orders - Current: Current Medications Acetaminophen (Tylenol) 650 mg PO Q4H PRN PRN Reason: Pain (Mild 1-3)/fever Acetaminophen (Tylenol) 650 mg PO Q4H PRN PRN Reason: Pain (Mild 1-3)/fever Albuterol (Proventil Neb Soln) 2.5 mg NEB Q4H PRN PRN Reason: Shortness Of Breath/wheezing Bisacodyl (Dulcolax) 5 mg PO DAILY PRN PRN Reason: Constipation Cefdinir (Omnicef) 300 mg PO BID [facility] Last Admin: 12/31/19 08:25 Dose: 300 mg Documented by: Docusate Sodium (Colace) 100 mg PO BID PRN PRN Reason: Constipation Donepezil HCl (Aricept) 10 mg PO WITHDINNER [facility] Last Admin: 12/30/19 16:55 Dose: 10 mg Documented by: Enoxaparin Sodium (Lovenox) 40 mg SUBCUT DAILY [facility] Last Admin: 12/31/19 08:25 Dose: 40 mg Documented by: Glipizide (Glucotrol) 2.5 mg PO DAILY@0800 [facility] Last Admin: 12/31/19 08:25 Dose: 2.5 mg Documented by: Lorazepam (Ativan) 1 mg IV Q6H PRN PRN Reason: Nausea/Vomiting Memantine (Namenda) 10 mg PO BID [facility] Last Admin: 12/31/19 08:25 Dose: 10 mg Documented by: Morphine Sulfate (Morphine) 2 mg IVPUSH Q2H PRN PRN Reason: Pain (severe 7-10) Ondansetron HCl (Zofran Odt) 4 mg PO Q6H PRN PRN Reason: Nausea able to take PO Oxycodone HCl (Oxycodone) 5 mg PO Q4H PRN PRN Reason: Pain (moderate 4-6) Melatonin 10mg (Ptom) 0 each PO BEDTIME [facility] Last Admin: 12/30/19 20:36 Dose: 1 each Documented by: Discontinued Medications Acetaminophen (Tylenol Extra Strength) 1,000 mg PO ONETIME ONE Stop: 12/29/19 17:51 Last Admin: 12/29/19 18:51 Dose: 1,000 mg Documented by: Donepezil [facility] ([facility]icept) [facility] Glipizide (Glucotrol) 2.5 mg PO DAILY@0800 [facility] Last Admin: 12/30/19 08:27 Dose: 2.5 mg Documented by: Lactated Ringer's (Ringers, Lactated) 1,000 mls @ 500 mls/hr IV ASDIRECTED [facility] Last Admin: 12/29/19 18:52 Dose: 500 mls/hr Documented by: Sodium Chloride (Normal Saline) 1,000 mls @ 500 mls/hr IV ASDIRECTED [facility] Last Admin: 12/29/19 20:57 Dose: 500 mls/hr Documented by: Sodium Chloride (Normal Saline) 1,000 mls @ 125 mls/hr IV ASDIRECTED [facility] Last Admin: 12/30/19 04:01 Dose: 125 mls/hr Documented by: Ceftriaxone Sodium 1 gm/ (Sodium Chloride) 50 mls @ 100 mls/hr IV Q24H [facility] Last Admin: 12/29/19 21:40 Dose: 100 mls/hr Documented by: Ceftriaxone Sodium 1 gm/ (Sodium Chloride) 50 mls @ 100 mls/hr IV Q24H [facility] Melatonin (Melatonin) 9 mg PO BEDTIME [facility] Last Admin: 12/29/19 23:52 Dose: 9 mg Documented by: Memantine (Namenda) 10 mg PO BID [facility] Last Admin: 12/30/19 08:27 Dose: 10 mg Documented by: Non-Formulary Medication (Melatonin [Melatonin]) 10 mg PO BEDTIME [facility] Last Admin: 12/29/19 23:53 Dose: Not Given Documented by: Sodium Chloride (Saline Flush) 10 ml FLUSH ASDIRECTED PRN PRN Reason: Keep Vein Open Last Admin: 12/29/19 18:52 Dose: 10 ml Documented by: - Exam Quality Assessment: No: Supplemental Oxygen General: Alert, Cooperative, No Acute Distress Lungs: Clear to Auscultation, Normal Respiratory Effort Cardiovascular: Regular Rate, Regular Rhythm GI/Abdominal Exam: Soft, No Distention Extremities: No Pedal Edema. No: Increased Warmth Skin: Warm, Dry Psy/Mental Status: Alert, Normal Affect Sepsis Event Note - Evaluation Sepsis Screening Result: No Definite Risk - Focused Exam Vital Signs: Vital Signs Temp Pulse Resp BP Pulse Ox 12/31/19 11:06 36.8 C 65 18 112/41 L 95 12/31/19 07:58 36.7 C 57 L 16 111/53 L 94 L 12/31/19 03:00 36.6 C 56 L 16 134/60 95 - Problem List Review Problem List Initiated/Reviewed/Updated: Yes - My Orders Last 24 Hours: My Active Orders 12/30/19 12:21 Peripheral IV Discontinue [OM.PC] Routine 12/30/19 21:00 Cefdinir [Omnicef] 300 mg PO BID - Plan Plan:: ASSESSMENT AND PLAN - Complicated urinary tract infection-recurrent acute cystitis without hematuria. Many bacteria noted. No culture set up at the time of admission. Weak but otherwise doing okay. -Change antibiotics to cefdinir -Medication for pain and nausea -1 additional day of physical therapy to improve strength Alzheimer's dementia without behavior disturbance-no issues so far. -continue outpatient medications -Melatonin at bedtime Diabetes type 2-sugars controlled so far. -blood glucose testing before meals and at bedtime -Glipizide ER 2.5 mg po bid MAINTENANCE ISSUES -DVT Prophylaxis Lovenox 40 mg subcut daily -GI prophylaxis-not indicated -Nutrition regular diet ADMISSION This patient will be admitted to observation status, expect no more than one night hospital stay for evaluation and management of problems outline above. DISPOSITION anticipate discharge to home with his after the hospital stay, likely tomorrow if stable overnight Julian Light MD
[2019-12-31] MEDS: Donepezil 10 MG **PTOM PO SCH (17:25)
[2019-12-31] MEDS: MELATONIN 10 MG PO SCH (20:29)
[2020-01-01 08:03] VITALS: BP 112/57; PULSE 62
[2020-01-01] MEDS: GLIPIZIDE 5 MG PO SCH (08:21)
[2020-01-01] MEDS: Cefdinir 300 MG Cap PO SCH (09:25)
[2020-01-01] MEDS: MEMANTINE 10 MG PO SCH (09:26)
[2020-01-01] MEDS: Enoxaparin 40 MG/0.4 ML Syringe SUBCUT SCH (09:26)
--- NOTE | 2020-01-01 10:57 | PCM.DCSUM1 ---
Discharge Summary - Hospital Course Brief History: 79-year-old male with history of controlled type 2 diabetes mellitus, Alzheimer's dementia without behavioral disturbance who presented with weakness and confusion. He was admitted for observation and management of possible urinary tract infection and weakness. Diagnosis: Stroke: No - Discharge Data Discharge Date: 01/01/20 Discharge Disposition: Home, Self-Care 01 Condition: Good - Referral to Home Health Primary Care Physician: Seng Colunga MD - Discharge Diagnosis/Problem(s) (1) Acute cystitis without hematuria SNOMED Code(s): 82438032 ICD Code: N30.00 - ACUTE CYSTITIS WITHOUT HEMATURIA Status: Acute (2) Weakness SNOMED Code(s): 44626298 ICD Code: R53.1 - WEAKNESS Status: Acute Priority: High (3) Diabetes type 2, controlled SNOMED Code(s): 36133376, 119561895 ICD Code: E11.9 - TYPE 2 DIABETES MELLITUS WITHOUT COMPLICATIONS Status: Chronic Priority: Medium Qualifiers: Diabetes mellitus fdc insulin use: without intermediate teacher use Diabetes mellitus complication status: without complication Qualified Code(s): E11.9 - Type 2 diabetes mellitus without complications (4) Alzheimer's dementia without behavioral disturbance SNOMED Code(s): 44392416 ICD Code: G30.9 - ALZHEIMER'S DISEASE, UNSPECIFIED; F02.80 - DEMENTIA IN OTH DISEASES CLASSD ELSWHR W/O BEHAVRL DISTURB Status: Chronic Priority: High Qualifiers: Alzheimer's disease onset: late-onset Qualified Code(s): G30.1 - Alzheimer's disease with late onset; F02.80 - Dementia in other diseases classified elsewhere without behavioral disturbance - Patient Summary/Data Consults: Consultations 12/29/19 21:08 Consult to Spiritual Care [CONS] Routine Special Instructions: Denominational PT Evaluation and Treatment [CONS] Routine Please Evaluate and Treat. PT Reason for Consult: Ambulation This query below is only for informational purposes and is not editable. Hospital Course: Anam presented to the emergency room with fever, increasing weakness and confusion. Work-up in the emergency room was fairly unremarkable though urinalysis was moderately suggestive of infection. He was started on ceftriaxone and admitted to the hospital for observation. He did receive IV fluids overnight but then pulled out his IV so these were discontinued. Over the next couple of days he made steady improvements. His strength has been improving. His appetite has been good. He has not had any fevers. We did transition him to oral antibiotics and he has continued to improve after this change. Unfortunately a urine culture was not set up but he has been steadily improving with antibiotics. His feels that he is moving well enough to be safe at home. There have been no behavior issues and his vital signs have all been stable. He will be going home with his today. He will be on oral antibiotics for a few more days. - Patient Instructions Diet: Diabetic Diet Activity: As Tolerated Showering/Bathing: May Shower Notify Provider of: Fever, Increased Pain Other/Special Instructions: 1. You were in the hospital for management of a urinary tract infection complicated by generalized weakness. Your condition has been improving with antibiotic therapy. I do recommend ongoing antibiotic therapy after hospital discharge. Please take cefdinir (Omnicef) 300 mg twice daily with food. Your first dose outside of the hospital will be due tonight. 2. Continue your other home medications as previously prescribed. - Discharge Plan *PRESCRIPTION DRUG MONITORING PROGRAM REVIEWED*: No *COPY OF PRESCRIPTION DRUG MONITORING REPORT IN PATIENT HU: No Prescriptions/Med Rec: Cefdinir [Omnicef] 300 mg PO BID #9 cap Home Medications: Home Meds Donepezil HCl 10 mg PO WITHDINNER 08/11/15 [History] Loratadine [Claritin] 10 mg PO DAILY PRN 08/11/15 [History] Memantine [Namenda] 10 mg PO BID 08/11/18 [History] Acetaminophen [Tylenol] 650 mg PO Q4H PRN #100 tablet 08/14/18 [Rx] Melatonin 10 mg PO BEDTIME #30 tablet 08/14/18 [Rx] Cholestyramine/Sucrose [Cholestyramine] 1 pack PO BID 12/29/19 [History] glipiZIDE [Glucotrol] 2.5 mg PO DAILY 12/30/19 [History] Cefdinir [Omnicef] 300 mg PO BID #9 cap 01/01/20 [Rx] Oxygen Therapy Mode: Room Air Patient Handouts: Cefdinir capsules, Urinary Tract Infection, Adult Referrals: Seng Colunga MD [Primary Care Provider] - 01/06/20 1:30 pm (Please arrive 15 minutes early to register for appointment.) - Discharge Summary/Plan Comment DC Time >30 min.: No - Patient Data Vitals - Most Recent: Last Vital Signs Temp 36.8 C 01/01/20 08:00 Pulse 62 01/01/20 08:00 Resp 16 01/01/20 08:00 BP 112/57 L 01/01/20 08:00 Pulse Ox 94 L 01/01/20 08:00 Weight - Most Recent: 100.244 kg I&O - Last 24 hours: Intake & Output 12/31/19 01/01/20 01/01/20 22:59 06:59 14:59 Intake Total 1800 600 Balance 1800 600 VAL Results - Last 24 hrs: Microbiology 12/29/19 18:05 Aerobic Blood Culture - Preliminary Blood - Arm, Right NO GROWTH AFTER 2 DAYS Anaerobic Blood Culture - Preliminary NO GROWTH AFTER 2 DAYS Med Orders - Current: Current Medications Acetaminophen (Tylenol) 650 mg PO Q4H PRN PRN Reason: Pain (Mild 1-3)/fever Acetaminophen (Tylenol) 650 mg PO Q4H PRN PRN Reason: Pain (Mild 1-3)/fever Albuterol (Proventil Neb Soln) 2.5 mg NEB Q4H PRN PRN Reason: Shortness Of Breath/wheezing Bisacodyl (Dulcolax) 5 mg PO DAILY PRN PRN Reason: Constipation Cefdinir (Omnicef) 300 mg PO BID [facility] Last Admin: 01/01/20 09:25 Dose: 300 mg Documented by: Docusate Sodium (Colace) 100 mg PO BID PRN PRN Reason: Constipation Donepezil HCl (Aricept) 10 mg PO WITHDINNER [facility] Last Admin: 12/31/19 17:25 Dose: 10 mg Documented by: Enoxaparin Sodium (Lovenox) 40 mg SUBCUT DAILY [facility] Last Admin: 01/01/20 09:26 Dose: 40 mg Documented by: Glipizide (Glucotrol) 2.5 mg PO DAILY@0800 [facility] Last Admin: 01/01/20 08:21 Dose: 2.5 mg Documented by: Lorazepam (Ativan) 1 mg IV Q6H PRN PRN Reason: Nausea/Vomiting Memantine (Namenda) 10 mg PO BID [facility] Last Admin: 01/01/20 09:26 Dose: 10 mg Documented by: Morphine Sulfate (Morphine) 2 mg IVPUSH Q2H PRN PRN Reason: Pain (severe 7-10) Ondansetron HCl (Zofran Odt) 4 mg PO Q6H PRN PRN Reason: Nausea able to take PO Oxycodone HCl (Oxycodone) 5 mg PO Q4H PRN PRN Reason: Pain (moderate 4-6) Melatonin 10mg (Ptom) 0 each PO BEDTIME [facility] Last Admin: 12/31/19 20:29 Dose: 1 each Documented by: Discontinued Medications Acetaminophen (Tylenol Extra Strength) 1,000 mg PO ONETIME ONE Stop: 12/29/19 17:51 Last Admin: 12/29/19 18:51 Dose: 1,000 mg Documented by: Donepezil HCl (Aricept) 10 mg PO [facility] Glipizide (Glucotrol) 2.5 mg PO DAILY@0800 [facility] Last Admin: 12/30/19 08:27 Dose: 2.5 mg Documented by: Lactated Ringer's (Ringers, Lactated) 1,000 mls @ 500 mls/hr IV ASDIRECTED [facility] Last Admin: 12/29/19 18:52 Dose: 500 mls/hr Documented by: Sodium Chloride (Normal Saline) 1,000 mls @ 500 mls/hr IV ASDIRECTED [facility] Last Admin: 12/29/19 20:57 Dose: 500 mls/hr Documented by: Sodium Chloride (Normal Saline) 1,000 mls @ 125 mls/hr IV ASDIRECTED [facility] Last Admin: 12/30/19 04:01 Dose: 125 mls/hr Documented by: Ceftriaxone Sodium 1 gm/ (Sodium Chloride) 50 mls @ 100 mls/hr IV Q24H [facility] Last Admin: 12/29/19 21:40 Dose: 100 mls/hr Documented by: Ceftriaxone Sodium 1 gm/ (Sodium Chloride) 50 mls @ 100 mls/hr IV Q24H [facility] Melatonin (Melatonin) 9 mg PO BEDTIME [facility] Last Admin: 12/29/19 23:52 Dose: 9 mg Documented by: Memantine (Namenda) 10 mg PO BID [facility] Last Admin: 12/30/19 08:27 Dose: 10 mg Documented by: Non-Formulary Medication (Melatonin [Melatonin]) 10 mg PO BEDTIME [facility] Last Admin: 12/29/19 23:53 Dose: Not Given Documented by: Sodium Chloride (Saline Flush) 10 ml FLUSH ASDIRECTED PRN PRN Reason: Keep Vein Open Last Admin: 12/29/19 18:52 Dose: 10 ml Documented by:
== END 2020-01-01 11:46 | disposition home or self-care (01) ==
LOC: JP.ED 16:45 → JP.MS 20:38
PROVIDERS: ADMIT Internal Medicine; ATTEND Internal Medicine
DX: N30.00 Acute cystitis without hematuria (principal); R53.1 Weakness; I10 Essential (primary) hypertension; G30.1 Alzheimer's disease with late onset; E11.9 Type 2 diabetes mellitus without complications; F02.80 Dementia in other diseases classified elsewhere, unspecified severity, without behavioral disturbance, psychotic disturbance, mood disturbance, and anxiety; Z79.84 Long term (current) use of oral hypoglycemic drugs; Z20.828 Contact with and (suspected) exposure to other viral communicable diseases; Z88.0 Allergy status to penicillin; Z66 Do not resuscitate; Z79.899 Other long term (current) drug therapy
CPT/HCPCS: 36415; 51701; 71045; 80048; 81001; 82962; 85025; 85027; 86140; 87040; 94762; 96361; 96365; 96372; 97116; 97162; 97530; 97535; 99285; A9270; G0378; J0696; J1650; J7030; J7050; J7120; U0002; 96360; 99284

== ENCOUNTER 2020-04-08 17:04 | Inpatient (IN) | payer MEDICARE ==
--- NOTE | 2020-04-08 19:24 | EDM.PDOC ---
ED HPI GENERAL MEDICAL PROBLEM - General Chief Complaint: General Stated Complaint: FALL/MEDICAL VIA NORTH Time Seen by Provider: 04/08/20 18:00 Source of Information: Reports: Patient, Family History Limitations: Reports: No Limitations - History of Present Illness INITIAL COMMENTS - FREE TEXT/NARRATIVE: Was seen in the clinic on Friday and diagnosed with UTI. He was started on cefdinir but developed a cough for this and was subsequently changed yesterday to ciprofloxacin. The patient reportedly had a rash that developed from that this morning and his is not given any additional doses. He was started on these medications by the clinic for urinary tract infection. In addition, the patient is suffered a significant fall today striking his head on the door. He had no loss of consciousness and does not complain of a headache. The patient does have Alzheimer's type dementia and as a result has become increasingly difficult for the patient and his to manage him at home. Patient has been having more frequent falls over the last 10 to 14 days with increasing weakness in his right leg. Despite having a urinary tract infection, the patient denies any urgency, frequency, or burning with urination. In addition, despite striking his head against the door he denies any headache, change in vision, numbness or tingling, or neck pain. The patient's reports that the rash allegedly due to the ciprofloxacin was on his arms and look like a red macular rash. She did give him a sponge bath and applied some lotion which resolved the rash. The patient and both report that the rash was quite pruritic. He denies any shortness of breath. He has had a cough since taking the cefdinir. He denies any nausea, vomiting, or diarrhea. Again he has baseline Alzheimer's dementia with limited mobility getting around at home with the use of a walker. 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, Other (See Below) Other 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 Genitourinary History: Reports: Urinary Incontinence Musculoskeletal History: Reports: None Neurological History: Reports: Alzheimers Disease, TIA Psychiatric History: Reports: Alzheimers Disease, Dementia Endocrine/Metabolic History: Reports: Diabetes, Type II Other Endocrine/Metabolic History: diabetes, on metformin Immunologic History: Reports: None Oncologic (Cancer) History: Reports: None Dermatologic History: Reports: None - Infectious Disease History Infectious Disease History: Reports: Chicken Pox, Measles, Mumps - Past Surgical History HEENT Surgical History: Reports: Oral Surgery Other HEENT Surgeries/Procedures: dentures top and bottom GI Surgical History: Reports: Cholecystectomy Musculoskeletal Surgical History: Reports: None Social & Family History - Family History Family Medical History: No Pertinent Family History - Tobacco Use Tobacco Use Status *Q: Never Tobacco User - Caffeine Use Caffeine Use: Reports: Coffee Caffeine Use Comment: rarely - Living Situation & Occupation Living situation: Reports: with Family (lives with his second of 27 years at [facility] in [facility]. 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 It did go away after a sponge bath.) Neurological: Reports: No Symptoms, Other (Alzheimer's dementia) Psychiatric: Reports: Depression Hematologic/Lymphatic: Reports: No Symptoms Immunologic: Reports: No Symptoms ED EXAM, GENERAL - Physical Exam Exam: See Below Exam Limited By: No Limitations General Appearance: Alert, WD/WN, No Apparent Distress Eye Exam: Bilateral Eye: EOMI, PERRL Ears: Normal External Exam, Hearing Grossly Normal Nose: Normal Inspection Throat/Mouth: Normal Inspection, Normal Lips, Normal Teeth, Normal Gums, Normal Oropharynx, Normal Voice, No Airway Compromise Head: Atraumatic, Normocephalic. No: Facial Swelling, Facial Tenderness Neck: Normal Inspection, Supple, Non-Tender, Full Range of Motion Respiratory/Chest: No Respiratory Distress, Lungs Clear, Normal Breath Sounds, No Accessory Muscle Use, Chest Non-Tender Cardiovascular: Normal Peripheral Pulses, Regular Rate, Rhythm, No Edema, No Gallop, No Murmur Peripheral Pulses: 2+: Radial (L), Radial (R) GI/Abdominal: Normal Bowel Sounds, Soft, Non-Tender, No Organomegaly, No Distention, No Abnormal Bruit, No Mass (Male) Exam: Deferred Rectal (Males) Exam: Deferred Back Exam: Normal Inspection, Full Range of Motion Extremities: Normal Inspection, Normal Range of Motion, Non-Tender, No Pedal Edema, Normal Capillary Refill Neurological: Alert, CN II-XII Intact, Sensory/Motor Deficit (Mild decreased strength on flexion at the ankle on the right versus the left. Equal extension at the ankle bilaterally. Normal sensory.) Psychiatric: Depressed Mood, Flat Affect Skin Exam: Warm, Dry, Intact, Normal Color, No Rash Lymphatic: No Adenopathy Course - Vital Signs Last Recorded V/S: Last Vital Signs Temp 36.5 C 04/08/20 17:42 Pulse 64 04/08/20 18:00 Resp 18 04/08/20 17:42 BP 209/86 H 04/08/20 18:00 Pulse Ox 94 L 04/08/20 17:42 - Orders/Labs/Meds Orders: Active Orders 24 hr Category Date Time Status Head wo Cont [CT] Stat Exams 04/08/20 18:53 Taken CBC WITH AUTO DIFF [HEME] Stat Lab 04/08/20 19:04 Ordered COMPREHENSIVE METABOLIC PN,CMP [CHEM] Stat Lab 04/08/20 19:04 Ordered CORONAVIRUS COVID-19 VANE [MOLEC] Stat Lab 04/08/20 19:06 Ordered Labs: Laboratory Tests 04/08/20 Range/Units 18:04 Urine Color Yellow (YELLOW) Urine Appearance Clear (CLEAR) Urine pH 5.5 (5.0-8.0) Ur Specific [place] 1.025 (1.008-1.030) Urine Protein Negative (NEGATIVE) mg/dL Urine Glucose (UA) Negative (NEGATIVE) mg/dL Urine Ketones Negative (NEGATIVE) mg/dL Urine Occult Blood Negative (NEGATIVE) Urine Nitrite Negative (NEGATIVE) Urine Bilirubin Negative (NEGATIVE) Urine Urobilinogen 0.2 (0.2-1.0) EU/dL Ur Leukocyte Esterase Negative (NEGATIVE) Urine RBC 0-5 (0-5) Urine WBC 0-5 (0-5) Ur Epithelial Cells Not seen Amorphous Sediment Not seen Urine Bacteria Not seen Urine Mucus Few Departure - Departure Time of Disposition: 19:29 Disposition: Admitted As Inpatient 68 Clinical Impression: Generalized muscle weakness, Repeated falls - Discharge Information *PRESCRIPTION DRUG MONITORING PROGRAM REVIEWED*: Not Applicable *COPY OF PRESCRIPTION DRUG MONITORING REPORT IN PATIENT HU: Not Applicable Referrals: Seng Colunga MD [Primary Care Provider] - Care Plan Goals: The plan is admit the patient for generalized weakness for further evaluation with plan to likely discharge the patient to a half-way in [place]. Sepsis Event Note (ED) - Evaluation Sepsis Screening Result: No Definite Risk - Focused Exam Vital Signs: Vital Signs Temp Pulse Resp BP Pulse Ox 04/08/20 18:00 64 209/86 H 04/08/20 17:42 36.5 C 65 18 171/78 H 94 L 04/08/20 17:11 36.5 C 65 18 171/78 H 94 L - Problem List & Annotations (1) Generalized muscle weakness SNOMED Code(s): 60909776, 59180646 Code(s): M62.81 - MUSCLE WEAKNESS (GENERALIZED) Status: Acute Current Visit: Yes (2) Alzheimer's dementia without behavioral disturbance SNOMED Code(s): 22927886 Code(s): G30.9 - ALZHEIMER'S DISEASE, UNSPECIFIED; F02.80 - DEMENTIA IN OTH DISEASES CLASSD ELSWHR W/O BEHAVRL DISTURB Status: Chronic Priority: High Current Visit: No Qualifiers: Qualified Code(s): G30.1 - Alzheimer's disease with late onset; F02.80 - Dementia in other diseases classified elsewhere without behavioral disturbance - Problem List Review Problem List Initiated/Reviewed/Updated: Yes - My Orders Last 24 Hours: My Active Orders 04/08/20 18:53 Head wo Cont [CT] Stat 04/08/20 19:04 CBC WITH AUTO DIFF [HEME] Stat COMPREHENSIVE METABOLIC PN,CMP [CHEM] Stat 04/08/20 19:06 CORONAVIRUS COVID-19 VANE [MOLEC] Stat - Assessment/Plan Last 24 Hours: My Active Orders 04/08/20 18:53 Head wo Cont [CT] Stat 04/08/20 19:04 CBC WITH AUTO DIFF [HEME] Stat COMPREHENSIVE METABOLIC PN,CMP [CHEM] Stat 04/08/20 19:06 CORONAVIRUS COVID-19 VANE [MOLEC] Stat
--- NOTE | 2020-04-08 19:40 | CRLCT ---
INDICATION: Right lower extremity weakness for 1 week, frequent falls TECHNIQUE: Head CT without contrast. COMPARISON: August 11, 2015 FINDINGS: CSF spaces: The ventricles are prominent in size, stable Brain parenchyma: There are nonspecific low attenuation white matter changes consistent with chronic microvascular disease. No sign of mass, hemorrhage, or midline shift. Skull base and calvarium: The visualized paranasal sinuses and mastoid air cells demonstrate no acute or significant findings. The visualized orbits are grossly unremarkable. No skull fractures. There is intracranial atherosclerosis. IMPRESSION: 1. No acute findings. 2. Nonspecific white matter disease, typical of chronic microvascular disease. 3. The ventricles are prominent in size but stable compared to the prior study. Although this could be due to diffuse cerebral atrophy, normal pressure hydrocephalus should be considered. Please note that all CT scans at this facility use dose modulation, iterative reconstruction, and/or weight-based dosing when appropriate to reduce radiation dose to as low as reasonably achievable. Dictated by Briseyda Rodriguez MD @ Apr 08 2020 7:34PM Signed by Dr. Briseyda Rodriguez @ Apr 08 2020 7:39PM
--- NOTE | 2020-04-08 19:48 | PCM.HP.2 ---
H&P History of Present Illness - General Date of Service: 04/08/20 Admit Problem/Dx: Admission Diagnosis/Problem Admission Diagnosis/Problem Acute cystitis without hematuria Source of Information: Patient, Family, Provider History Limitations: Reports: Altered Mental Status (dementia ) - History of Present Illness Initial Comments - Free Text/Narative: CC: He fell so hard HPI: Anam presents to the emergency room via ambulance after falling at home. He was so weak that he required 2 people to help him up from the floor. Most of the history is gathered from his because of his advanced dementia. Additional history was gathered from the emergency room folks. His reports that he falls several times per week but usually is able to get up. He has seemed to be more weak recently and his right leg seems to give out on him. She says that he has been eating well and has been sleeping well. His bowels have been moving regularly. He has not had any fevers. He was diagnosed with a urinary tract infection recently and was started on cefdinir. This antibiotic was stopped with concerns that it was causing a cough in the morning. He was changed to ciprofloxacin. The cough has gone away but yesterday he developed a red rash on his right arm. He did not get any antibiotics today. He has not complained of any headaches. No recent travel or obvious sick contacts. Work-up in the emergency room so far has been reassuring with no significant electrolyte abnormalities. Head CT was stable. Covid test is pending. He is extremely weak and not safe for outpatient management. - Related Data Allergies/Adverse Reactions: Allergies Allergy/AdvReac Type Severity Reaction Status Date / Time Penicillins Allergy Cardiac Verified 04/08/20 17:30 Arrest Home Medications: Home Meds Donepezil HCl 10 mg PO WITHDINNER 08/11/15 [History] Loratadine [Claritin] 10 mg PO DAILY PRN 08/11/15 [History] Memantine [Namenda] 10 mg PO BID 08/11/18 [History] Melatonin 10 mg PO BEDTIME #30 tablet 08/14/18 [Rx] Cholestyramine/Sucrose [Cholestyramine] 1 pack PO BID 12/29/19 [History] glipiZIDE [Glucotrol] 2.5 mg PO DAILY 12/30/19 [History] Past Medical History Cardiovascular History: Reports: Hypertension 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, Other (See Below) Other 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 Genitourinary History: Reports: Urinary Incontinence Musculoskeletal History: Reports: None Neurological History: Reports: Alzheimers Disease, TIA Psychiatric History: Reports: Alzheimers Disease, Dementia Endocrine/Metabolic History: Reports: Diabetes, Type II Other Endocrine/Metabolic History: diabetes, on metformin Immunologic History: Reports: None Oncologic (Cancer) History: Reports: None Dermatologic History: Reports: None - Infectious Disease History Infectious Disease History: Reports: Chicken Pox, Measles, Mumps - Past Surgical History HEENT Surgical History: Reports: Oral Surgery Other HEENT Surgeries/Procedures: dentures top and bottom GI Surgical History: Reports: Cholecystectomy Musculoskeletal Surgical History: Reports: None Social & Family History - Family History Family Medical History: No Pertinent Family History - Tobacco Use Tobacco Use Status *Q: Never Tobacco User - Caffeine Use Caffeine Use: Reports: Coffee Caffeine Use Comment: rarely - Living Situation & Occupation Living situation: Reports: with Family (lives with his second of 27 years at [facility] in [facility]. 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 Pertinent positives and negatives are noted in the history of present illness. All other systems were r eviewed and were negative except as noted. Review of systems was completed by talking to both the patient and his . Exam - Exam Exam: See Below - Vital Signs Vital Signs: Last Vital Signs Temp 36.5 C 04/08/20 17:42 Pulse 67 04/08/20 19:00 Resp 18 04/08/20 17:42 BP 215/87 H 04/08/20 19:00 Pulse Ox 94 L 04/08/20 17:42 Weight: 102 kg - Exam Quality Assessment: No: Supplemental Oxygen General: Alert, Cooperative. No: Oriented, Mild Distress HEENT: Conjunctiva Clear, Mucosa Moist & Hurt. No: Scleral Icterus Neck: Supple, Trachea Midline Lungs: Clear to Auscultation, Normal Respiratory Effort Cardiovascular: Regular Rate, Regular Rhythm. No: Systolic Murmur GI/Abdominal Exam: Normal Bowel Sounds, Soft, Non-Tender, No Distention Extremities: Pedal Edema (Mild bilateral ankle edema). No: Joint Swelling, Increased Warmth Skin: Warm, Dry, Rash (Mild generalized folliculitis), Ecchymosis (Small ecchymosis right knee) Neuro Extensive - Mental Status: Alert, Nl Response to Commands. No: Oriented x3 Neuro Extensive - Motor, Sensory, Reflexes: No: Dysarthria, Abnormal Motor, Tremor Psychiatric: Alert, Normal Affect. No: Agitated - Patient Data Lab Results Last 24 hrs: Laboratory Results - last 24 hr 04/08/20 04/08/20 04/08/20 Range/Units 18:04 19:20 19:20 WBC 8.0 (4.5-11.0) K/uL RBC 4.98 (4.30-5.90) M/uL Hgb 15.3 H (12.0-15.0) g/dL Hct 46.4 (40.0-54.0) % MCV 93 (80-98) fL MCH 31 (27-31) pg MCHC 33 (32-36) % Plt Count 233 (150-400) K/uL Neut % (Auto) 64 (36-66) % Lymph % (Auto) 22 L (24-44) % [place] % (Auto) 11 H (2-6) % Eos % (Auto) 2 (2-4) % Baso % (Auto) 0 (0-1) % Sodium 137 L (140-148) mmol/L Potassium 4.1 (3.6-5.2) mmol/L Chloride 101 (100-108) mmol/L Carbon Dioxide 25 (21-32) mmol/L Anion Gap 15.1 H (5.0-14.0) mmol/L BUN 9 (7-18) mg/dL Creatinine 0.9 (0.8-1.3) mg/dL Est Cr Clr Drug Dosing 74.35 mL/min Estimated GFR (MDRD) > 60 (>60) Glucose 143 H (74-106) mg/dL Calcium 9.1 (8.5-10.1) mg/dL Total Bilirubin 0.8 (0.2-1.0) mg/dL AST 37 (15-37) U/L ALT 65 D (12-78) U/L Alkaline Phosphatase 64 (46-116) U/L Total Protein 7.1 (6.4-8.2) g/dL Albumin 3.5 (3.4-5.0) g/dL Globulin 3.6 H (2.3-3.5) g/dL Albumin/Globulin Ratio 1.0 L (1.2-2.2) Urine Color Yellow (YELLOW) Urine Appearance Clear (CLEAR) Urine pH 5.5 (5.0-8.0) Ur Specific [place] 1.025 (1.008-1.030) Urine Protein Negative (NEGATIVE) mg/dL Urine Glucose (UA) Negative (NEGATIVE) mg/dL Urine Ketones Negative (NEGATIVE) mg/dL Urine Occult Blood Negative (NEGATIVE) Urine Nitrite Negative (NEGATIVE) Urine Bilirubin Negative (NEGATIVE) Urine Urobilinogen 0.2 (0.2-1.0) EU/dL Ur Leukocyte Esterase Negative (NEGATIVE) Urine RBC 0-5 (0-5) Urine WBC 0-5 (0-5) Ur Epithelial Cells Not seen Amorphous Sediment Not seen Urine Bacteria Not seen Urine Mucus Few Result Diagrams: 04/08/20 19:20 04/08/20 19:20 Imaging Impressions Last 24 hrs: Head CT-images were personally reviewed and the radiologist interpretation noted-no acute finding such as mass, bleed or infarct. He does have chronic small vessel disease. Ventricles are enlarged but stable. Sepsis Event Note - Evaluation Sepsis Screening Result: No Definite Risk - Focused Exam Vital Signs: Vital Signs Temp Pulse Resp BP Pulse Ox 04/08/20 19:00 67 215/87 H 04/08/20 18:00 64 209/86 H 04/08/20 17:42 36.5 C 65 18 171/78 H 94 L 04/08/20 17:11 36.5 C 65 18 171/78 H 94 L *Q Meaningful Use (ADM) - VTE Risk Assess *Q Each Risk Factor Represents 1 Point: Swollen Legs, Current, Obesity ( BMI > 25 kg/m2) Total Score 1 Point Risk Factors: 2 Each Risk Factor Represents 2 Points: None Total Score 2 Point Risk Factors: 0 Each Risk Factor Represents 3 Points: Age 75 Years or Greater Total Score 3 Point Risk Factors: 3 Each Risk Factor Represents 5 Points: None Total Score 5 Point Risk Factors: 0 Venous Thromboembolism Risk Factor Score *Q: 5 - Problem List (1) Acute cystitis without hematuria SNOMED Code(s): 42235948 ICD Code: N30.00 - ACUTE CYSTITIS WITHOUT HEMATURIA Status: Acute Current Visit: No (2) Weakness SNOMED Code(s): 76989466 ICD Code: R53.1 - WEAKNESS Status: Acute Priority: High Current Visit: No (3) Diabetes type 2, controlled SNOMED Code(s): 30725312, 681757057 ICD Code: E11.9 - TYPE 2 DIABETES MELLITUS WITHOUT COMPLICATIONS Status: Chronic Priority: Medium Current Visit: No Qualifiers: Diabetes mellitus intermediate insulin use: without intermediate use Diabetes mellitus complication status: without complication Qualified Code(s): E11.9 - Type 2 diabetes mellitus without complications (4) Alzheimer's dementia without behavioral disturbance SNOMED Code(s): 10339110 ICD Code: G30.9 - ALZHEIMER'S DISEASE, UNSPECIFIED; F02.80 - DEMENTIA IN OTH DISEASES CLASSD ELSWHR W/O BEHAVRL DISTURB Status: Chronic Priority: High Current Visit: No Qualifiers: Alzheimer's disease onset: late-onset Qualified Code(s): G30.1 - Alzheimer's disease with late onset; F02.80 - Dementia in other diseases classified elsewhere without behavioral disturbance Problem List Initiated/Reviewed/Updated: Yes Orders Last 24hrs: Active Orders 24 hr Category Date Time Status Patient Status Manage Transfer [TRANSFER] Routine ADT 04/08/20 19:44 Ordered CORONAVIRUS COVID-19 VANE [MOLEC] Stat Lab 04/08/20 19:06 Ordered Resuscitation Status Routine Resus Stat 04/08/20 19:45 Ordered Assessment/Plan Comment:: ASSESSMENT AND PLAN - Acute cystitis without hematuria-intolerant to 2 different antibiotics as an outpatient. No evidence for sepsis at this time. This has caused significant weakness but he is otherwise stable. Follow-up urine sample is clearing. -Encourage adequate oral intake -Physical therapy for strengthening Alzheimer's dementia without behavioral disturbance-progressive decline at home. His is not sure that she will be able to care for him much longer and his current state. -Continue home meds -Melatonin at bedtime Type 2 diabetes mellitus, controlled-he takes a small dose of glipizide once daily. Hemoglobin A1c has been around 6. -Continue home medications -Check sugars twice daily for the first couple of days Maintenance issues - - DVT prophylaxis -mechanical - GI prophylaxis -not indicated - Nutrition -consistent carbohydrate - Campos catheter -not indicated CODE STATUS -DNR/DNI Admission justification -this patient will be admitted for inpatient services and is medically appropriate meeting medical necessity for inpatient admission as outlined in my documentation. I reasonably expect the patient will require inpatient services that span a period time over 2 midnights. I reasonably expect this patient to be discharged or transferred within 96 hours after admission to the [facility]. Disposition -I would anticipate discharge to a snf facility for subacute rehab Primary care physician -Dr. Keanu Light M.D. - Mortality Measure Prognosis:: Good
[2020-04-08] MEDS ORDERED: Ondansetron 4 MG Tab.DIS PO PRN (20:42)
[2020-04-08] MEDS ORDERED: Magnesium Hydroxide 400 MG/5 ML Susp 30 ML Cup PO PRN (20:42)
[2020-04-08] MEDS ORDERED: Ondansetron 4 MG/2 ML SDV IV PRN (20:42)
[2020-04-08 21:34] LABS: CORONAVIRUS COVID-19 NAA NEGATIVE (NEGATIVE)
[2020-04-08] MEDS: Memantine 10 MG Tab PO SCH (22:04)
[2020-04-08] MEDS: Acetaminophen 325 MG Tab PO PRN (22:04)
[2020-04-08] MEDS: Melatonin 3 MG Tab PO SCH (22:05)
[2020-04-08] MEDS: Cholestyramine/Sucrose Powder 4 GM Packet PO SCH (22:05)
[2020-04-09] MEDS: Memantine 10 MG Tab PO SCH ×2 (08:19→21:29)
[2020-04-09] MEDS: Cholestyramine/Sucrose Powder 4 GM Packet PO SCH ×2 (08:19→21:28)
[2020-04-09] MEDS: glipiZIDE 5 MG Tab PO SCH (08:19)
--- NOTE | 2020-04-09 12:00 | PCM.PN ---
- General Info Date of Service: 04/09/20 Subjective Update: No acute events overnight following admission. This morning the patient slid out of the chair and ended up sitting on the floor. No injuries were noted. He tells me that he feels well. He does not have shortness of breath or abdominal pain. His vital signs have been stable. Repeat laboratory studies have been unremarkable. He has not had any fevers. He remains quite weak and requires significant assistance. Functional Status: Reports: Pain Controlled - Review of Systems General: Denies: Fever Neurological: Reports: Confusion - Patient Data Vitals - Most Recent: Last Vital Signs Temp 36.4 C 04/09/20 11:18 Pulse 64 04/09/20 11:18 Resp 20 04/09/20 11:18 BP 129/64 04/09/20 11:18 Pulse Ox 94 L 04/09/20 11:18 Weight - Most Recent: 103.8 kg I&O - Last 24 Hours: Intake & Output 04/08/20 04/09/20 04/09/20 22:59 06:59 14:59 Intake Total 300 Balance 300 Lab Results Last 24 Hours: Laboratory Results - last 24 hr 04/08/20 04/08/20 04/08/20 Range/Units 18:04 19:20 19:20 WBC 8.0 (4.5-11.0) K/uL RBC 4.98 (4.30-5.90) M/uL Hgb 15.3 H (12.0-15.0) g/dL Hct 46.4 (40.0-54.0) % MCV 93 (80-98) fL MCH 31 (27-31) pg MCHC 33 (32-36) % Plt Count 233 (150-400) K/uL Neut % (Auto) 64 (36-66) % Lymph % (Auto) 22 L (24-44) % [place] % (Auto) 11 H (2-6) % Eos % (Auto) 2 (2-4) % Baso % (Auto) 0 (0-1) % Sodium 137 L (140-148) mmol/L Potassium 4.1 (3.6-5.2) mmol/L Chloride 101 (100-108) mmol/L Carbon Dioxide 25 (21-32) mmol/L Anion Gap 15.1 H (5.0-14.0) mmol/L BUN 9 (7-18) mg/dL Creatinine 0.9 (0.8-1.3) mg/dL Est Cr Clr Drug Dosing 74.35 mL/min Estimated GFR (MDRD) > 60 (>60) Glucose 143 H (74-106) mg/dL POC Glucose (74-106) MG/DL Calcium 9.1 (8.5-10.1) mg/dL Total Bilirubin 0.8 (0.2-1.0) mg/dL AST 37 (15-37) U/L ALT 65 D (12-78) U/L Alkaline Phosphatase 64 (46-116) U/L Total Protein 7.1 (6.4-8.2) g/dL Albumin 3.5 (3.4-5.0) g/dL Globulin 3.6 H (2.3-3.5) g/dL Albumin/Globulin Ratio 1.0 L (1.2-2.2) Urine Color Yellow (YELLOW) Urine Appearance Clear (CLEAR) Urine pH 5.5 (5.0-8.0) Ur Specific [place] 1.025 (1.008-1.030) Urine Protein Negative (NEGATIVE) mg/dL Urine Glucose (UA) Negative (NEGATIVE) mg/dL Urine Ketones Negative (NEGATIVE) mg/dL Urine Occult Blood Negative (NEGATIVE) Urine Nitrite Negative (NEGATIVE) Urine Bilirubin Negative (NEGATIVE) Urine Urobilinogen 0.2 (0.2-1.0) EU/dL Ur Leukocyte Esterase Negative (NEGATIVE) Urine RBC 0-5 (0-5) Urine WBC 0-5 (0-5) Ur Epithelial Cells Not seen Amorphous Sediment Not seen Urine Bacteria Not seen Urine Mucus Few Influenza Type A RNA (NEGATIVE) Influenza Type B RNA (NEGATIVE) RSV Rapid (NEGATIVE) SARS-CoV-2 RNA (VANE) (NEGATIVE) 04/08/20 04/09/20 Range/Units 20:54 08:00 WBC (4.5-11.0) K/uL RBC (4.30-5.90) M/uL Hgb (12.0-15.0) g/dL Hct (40.0-54.0) % MCV (80-98) fL MCH (27-31) pg MCHC (32-36) % Plt Count (150-400) K/uL Neut % (Auto) (36-66) % Lymph % (Auto) (24-44) % [place] % (Auto) (2-6) % Eos % (Auto) (2-4) % Baso % (Auto) (0-1) % Sodium (140-148) mmol/L Potassium (3.6-5.2) mmol/L Chloride (100-108) mmol/L Carbon Dioxide (21-32) mmol/L Anion Gap (5.0-14.0) mmol/L BUN (7-18) mg/dL Creatinine (0.8-1.3) mg/dL Est Cr Clr Drug Dosing mL/min Estimated GFR (MDRD) (>60) Glucose (74-106) mg/dL POC Glucose 152 H (74-106) MG/DL Calcium (8.5-10.1) mg/dL Total Bilirubin (0.2-1.0) mg/dL AST (15-37) U/L ALT (12-78) U/L Alkaline Phosphatase (46-116) U/L Total Protein (6.4-8.2) g/dL Albumin (3.4-5.0) g/dL Globulin (2.3-3.5) g/dL Albumin/Globulin Ratio (1.2-2.2) Urine Color (YELLOW) Urine Appearance (CLEAR) Urine pH (5.0-8.0) Ur Specific [place] (1.008-1.030) Urine Protein (NEGATIVE) mg/dL Urine Glucose (UA) (NEGATIVE) mg/dL Urine Ketones (NEGATIVE) mg/dL Urine Occult Blood (NEGATIVE) Urine Nitrite (NEGATIVE) Urine Bilirubin (NEGATIVE) Urine Urobilinogen (0.2-1.0) EU/dL Ur Leukocyte Esterase (NEGATIVE) Urine RBC (0-5) Urine WBC (0-5) Ur Epithelial Cells Amorphous Sediment Urine Bacteria Urine Mucus Influenza Type A RNA Negative (NEGATIVE) Influenza Type B RNA Negative (NEGATIVE) RSV Rapid Negative (NEGATIVE) SARS-CoV-2 RNA (VANE) Negative (NEGATIVE) Med Orders - Current: Current Medications Acetaminophen (Tylenol) 650 mg PO Q4H PRN PRN Reason: Pain (Mild 1-3)/fever Last Admin: 04/08/20 22:04 Dose: 650 mg Documented by: Cholestyramine Resin (Cholestyramine Packet) 4 gm PO BID NILE Last Admin: 04/09/20 08:19 Dose: 4 gm Documented by: [facility]il [facility]) [facility] Glipizide (Glucotrol) 2.5 mg PO DAILY [facility] Last Admin: 04/09/20 08:19 Dose: 2.5 mg Documented by: Magnesium Hydroxide (Milk Of Magnesia) 30 ml PO Q12H PRN PRN Reason: Constipation Melatonin (Melatonin) 9 mg PO BEDTIME [facility] Last Admin: 04/08/20 22:05 Dose: 9 mg Documented by: Memantine (Namenda) 10 mg PO BID [facility] Last Admin: 04/09/20 08:19 Dose: 10 mg Documented by: Ondansetron HCl (Zofran) 4 mg IV Q6H PRN PRN Reason: Nausea/Vomiting Ondansetron HCl (Zofran Odt) 4 mg PO Q6H PRN PRN Reason: Nausea able to take PO Senna/Docusate Sodium (Senna Plus) 1 tab PO BID PRN PRN Reason: Constipation - Exam Quality Assessment: No: Supplemental Oxygen General: Alert, Cooperative, No Acute Distress. No: Oriented Lungs: Normal Respiratory Effort GI/Abdominal Exam: Soft, No Distention Extremities: No Pedal Edema Skin: Warm, Dry Psy/Mental Status: Alert. No: Agitated Sepsis Event Note - Evaluation Sepsis Screening Result: No Definite Risk - Focused Exam Vital Signs: Vital Signs Temp Pulse Resp BP Pulse Ox 04/09/20 11:18 36.4 C 64 20 129/64 94 L 04/09/20 08:00 36.6 C 61 20 125/44 L 96 04/09/20 03:48 36.8 C 67 18 104/48 L 95 04/09/20 01:03 36.7 C 66 18 135/60 97 - Problem List & Annotations (1) Acute cystitis without hematuria SNOMED Code(s): 13296680 Code(s): N30.00 - ACUTE CYSTITIS WITHOUT HEMATURIA Status: Acute Current Visit: No (2) Weakness SNOMED Code(s): 13596372 Code(s): R53.1 - WEAKNESS Status: Acute Priority: High Current Visit: No (3) Diabetes type 2, controlled SNOMED Code(s): 82459455, 320774967 Code(s): E11.9 - TYPE 2 DIABETES MELLITUS WITHOUT COMPLICATIONS Status: Chronic Priority: Medium Current Visit: No Qualifiers: Diabetes mellitus medical terminologist insulin use: without fdc use Diabetes mellitus complication status: without complication Qualified Code(s): E11.9 - Type 2 diabetes mellitus without complications (4) Alzheimer's dementia without behavioral disturbance SNOMED Code(s): 01203287 Code(s): G30.9 - ALZHEIMER'S DISEASE, UNSPECIFIED; F02.80 - DEMENTIA IN OTH DISEASES CLASSD ELSWHR W/O BEHAVRL DISTURB Status: Chronic Priority: High Current Visit: No Qualifiers: Alzheimer's disease onset: late-onset Qualified Code(s): G30.1 - Alzheimer's disease with late onset; F02.80 - Dementia in other diseases classified elsewhere without behavioral disturbance - Problem List Review Problem List Initiated/Reviewed/Updated: Yes - My Orders Last 24 Hours: My Active Orders 04/08/20 19:45 Resuscitation Status Routine 04/08/20 20:42 Acetaminophen [TylenoL] 650 mg PO Q4H PRN Docusate Sodium/Sennosides [Senna Plus] 1 tab PO BID PRN Magnesium Hydroxide [Milk of Magnesia] 30 ml PO Q12H PRN Ondansetron [Zofran ODT] 4 mg PO Q6H PRN Ondansetron [Zofran] 4 mg IV Q6H PRN 04/08/20 20:42 Patient Status [ADT] Routine Antiembolic Devices [RC] .Routine Intake and Output [RC] QSHIFT Notify Provider Vital Signs [RC] ASDIRECTED Oxygen Therapy [RC] PRN Up With Assistance [RC] ASDIRECTED VTE/DVT Education [RC] Per Unit Routine Vital Signs [RC] Q4H Sequential Compression Device [OM.PC] Routine 04/08/20 21:00 Cholestyramine/Sucrose [Cholestyramine Packet] 4 gm PO BID Melatonin 9 mg PO BEDTIME Memantine [Namenda] 10 mg PO BID 04/09/20 09:00 glipiZIDE [Glucotrol] 2.5 mg PO DAILY 04/09/20 17:00 GLUCOSE POC LAB TO COLLECT JPM [POC] BIDAC Donepezil [Aricept] 10 mg PO WITHDINNER 04/10/20 07:00 PT Evaluation and Treatment [CONS] Routine 04/10/20 08:00 GLUCOSE POC LAB TO COLLECT JPM [POC] BIDAC 04/10/20 17:00 GLUCOSE POC LAB TO COLLECT JPM [POC] BIDAC - Plan Plan:: ASSESSMENT AND PLAN - Acute cystitis without hematuria-intolerant to 2 different antibiotics as an outpatient. No evidence for sepsis at this time. Weak but otherwise doing okay. No fevers or active symptoms. -Encourage adequate oral intake -Physical therapy for strengthening Alzheimer's dementia without behavioral disturbance-progressive decline at home. No behavior issues during the hospital stay so far. He did have a fall but no apparent injuries. -Continue home meds -Melatonin at bedtime Type 2 diabetes mellitus, controlled-Hemoglobin A1c has been around 6. Sugars well controlled so far. -Continue home medications -Check sugars twice daily for the first couple of days Maintenance issues - - DVT prophylaxis -mechanical - GI prophylaxis -not indicated - Nutrition -consistent carbohydrate Disposition -I would anticipate discharge to a custodial facility for subacute rehab Primary care physician -Dr. Keanu Light M.D.
[2020-04-09] MEDS: Donepezil 10 MG Tab PO SCH (17:40)
[2020-04-09] MEDS: Melatonin 3 MG Tab PO SCH (21:29)
[2020-04-09] MEDS: Acetaminophen 325 MG Tab PO PRN (21:29)
[2020-04-10] MEDS: Cholestyramine/Sucrose Powder 4 GM Packet PO SCH ×2 (08:27→20:28)
[2020-04-10] MEDS: glipiZIDE 5 MG Tab PO SCH (08:27)
[2020-04-10] MEDS: Memantine 10 MG Tab PO SCH ×2 (08:27→20:28)
--- NOTE | 2020-04-10 16:42 | PCM.PN ---
- General Info Date of Service: 04/10/20 Subjective Update: Mr. Buitrago has been stable over the last 24 hours. He is unable to provide a meaningful history concerning symptoms or review of systems because of his underlying dementia. - Patient Data Vitals - Most Recent: Last Vital Signs Temp 96.5 F L 04/10/20 15:00 Pulse 57 L 04/10/20 15:00 Resp 18 04/10/20 15:00 BP 120/47 L 04/10/20 15:00 Pulse Ox 96 04/10/20 15:00 Weight - Most Recent: 228 lb 13.437 oz I&O - Last 24 Hours: Intake & Output 04/10/20 04/10/20 04/10/20 06:59 14:59 22:59 Intake Total 500 500 Balance 500 500 Lab Results Last 24 Hours: Laboratory Results - last 24 hr 04/09/20 04/10/20 Range/Units 16:54 08:00 POC Glucose 136 H 154 H (74-106) MG/DL Med Orders - Current: Current Medications Acetaminophen (Tylenol) 650 mg PO Q4H PRN PRN Reason: Pain (Mild 1-3)/fever Last Admin: 04/09/20 21:29 Dose: 650 mg Documented by: Cholestyramine Resin (Cholestyramine Packet) 4 gm PO BID [facility] Last Admin: 04/10/20 08:27 Dose: 4 gm Documented by: Donepezil HCl (Aricept) 10 mg PO WITHDINNER [facility] Last Admin: 04/09/20 17:40 Dose: 10 mg Documented by: Glipizide (Glucotrol) 2.5 mg PO DAILY [facility] Last Admin: 04/10/20 08:27 Dose: 2.5 mg Documented by: Magnesium Hydroxide (Milk Of Magnesia) 30 ml PO Q12H PRN PRN Reason: Constipation Melatonin (Melatonin) 9 mg PO BEDTIME [facility] Last Admin: 04/09/20 21:29 Dose: 9 mg Documented by: Memantine (Namenda) 10 mg PO BID [facility] Last Admin: 04/10/20 08:27 Dose: 10 mg Documented by: Ondansetron HCl (Zofran) 4 mg IV Q6H PRN PRN Reason: Nausea/Vomiting Ondansetron HCl (Zofran Odt) 4 mg PO Q6H PRN PRN Reason: Nausea able to take PO Senna/Docusate Sodium (Senna Plus) 1 tab PO BID PRN PRN Reason: Constipation - Exam Quality Assessment: DVT Prophylaxis General: Alert, Cooperative, No Acute Distress. No: Oriented Lungs: Clear to Auscultation, Normal Respiratory Effort Cardiovascular: Regular Rate, Regular Rhythm, No Murmurs GI/Abdominal Exam: Soft, Non-Tender, No Organomegaly, No Distention Extremities: Non-Tender, No Pedal Edema Sepsis Event Note - Evaluation Sepsis Screening Result: No Definite Risk - Focused Exam Vital Signs: Vital Signs Temp Pulse Resp BP Pulse Ox 04/10/20 15:00 96.5 F L 57 L 18 120/47 L 96 04/10/20 07:57 97.5 F 59 L 20 141/52 H 95 - Problem List Review Problem List Initiated/Reviewed/Updated: Yes - My Orders Last 24 Hours: My Active Orders 04/10/20 12:09 OT Evaluation and Treatment [CONS] Routine - Plan Plan:: ASSESSMENT AND PLAN - Acute cystitis without hematuria-intolerant to 2 different antibiotics as an outpatient. No evidence for sepsis at this time. Weak but otherwise doing okay. No fevers or active symptoms. -Encourage adequate oral intake -Physical therapy for strengthening Alzheimer's dementia without behavioral disturbance-progressive decline at home. No behavior issues during the hospital stay so far. He did have a fall but no apparent injuries. -Continue home meds -Melatonin at bedtime Type 2 diabetes mellitus, controlled-Hemoglobin A1c has been around 6. Sugars well controlled so far. -Continue home medications -Check sugars twice daily for the first couple of days Maintenance issues - - DVT prophylaxis -mechanical - GI prophylaxis -not indicated - Nutrition -consistent carbohydrate Disposition -I would anticipate discharge to a correction facility for subacute rehab Primary care physician -Dr. Colunga
[2020-04-10] MEDS: Donepezil 10 MG Tab PO SCH (18:08)
[2020-04-10] MEDS: Melatonin 3 MG Tab PO SCH (20:28)
[2020-04-11 09:24] VITALS: BP 133/42; PULSE 64
[2020-04-11] MEDS: Cholestyramine/Sucrose Powder 4 GM Packet PO SCH (09:25)
[2020-04-11] MEDS: Memantine 10 MG Tab PO SCH (09:25)
[2020-04-11] MEDS: glipiZIDE 5 MG Tab PO SCH (09:25)
--- NOTE | 2020-04-11 12:19 | PCM.DCSUM1 ---
Discharge Summary - Hospital Course Brief History: Mr. Buitrago is a 80-year-old gentleman who was admitted through the emergency department with recent falls secondary to generalized weakness and progressive dementia. - Discharge Data Discharge Date: 04/11/20 Discharge Disposition: DC/Tfer to SNF 03 Condition: Stable - Referral to Home Health Primary Care Physician: Seng Colunga MD - Discharge Diagnosis/Problem(s) (1) Generalized muscle weakness SNOMED Code(s): 60197210, 21062611 ICD Code: M62.81 - MUSCLE WEAKNESS (GENERALIZED) Status: Acute Current Visit: Yes (2) Repeated falls SNOMED Code(s): 749006925 ICD Code: R29.6 - REPEATED FALLS Status: Acute Current Visit: Yes (3) Alzheimer's dementia without behavioral disturbance SNOMED Code(s): 80464838 ICD Code: G30.9 - ALZHEIMER'S DISEASE, UNSPECIFIED; F02.80 - DEMENTIA IN OTH DISEASES CLASSD ELSWHR W/O BEHAVRL DISTURB Status: Chronic Priority: High Current Visit: No Qualifiers: Alzheimer's disease onset: late-onset Qualified Code(s): G30.1 - Alzheimer's disease with late onset; F02.80 - Dementia in other diseases classified elsewhere without behavioral disturbance (4) Type 2 diabetes mellitus SNOMED Code(s): 83098352 ICD Code: E11.9 - TYPE 2 DIABETES MELLITUS WITHOUT COMPLICATIONS Status: Chronic Current Visit: No Qualifiers: Diabetes mellitus jail insulin use: without jail use Diabetes mellitus complication status: with unspecified complications - Patient Summary/Data Consults: Consultations 04/10/20 07:00 PT Evaluation and Treatment [CONS] Routine Please Evaluate and Treat. PT Reason for Consult: Strengthening This query below is only for informational purposes and is not editable. 04/10/20 12:09 OT Evaluation and Treatment [CONS] Routine Please Evaluate and Treat. OT Reason for Consult: Strengthening Pending Discharge: Yes Discharge Disposition: Intermediate Facility This query below is only for informational purposes and is not editable. Admission Diagnosis/Problem: Acute cystitis without hematuria Hospital Course: Mr. Buitrago presented to the emergency room via ambulance after falling at home. He was so weak that he required 2 people to help him up from the floor. Most of the history is gathered from his because of his advanced dementia. Additional history was gathered from the emergency room staff. His reports that he falls several times per week but usually is able to get up. He has seemed to be more weak recently and his right leg seems to give out on him. She says that he has been eating well and has been sleeping well. His bowels have been moving regularly. He has not had any fevers. He was diagnosed with a urinary tract infection recently and was started on cefdinir. This antibiotic was stopped with concerns that it was causing a cough in the morning. He was changed to ciprofloxacin. The cough has gone away but yesterday he developed a red rash on his right arm. Work-up in the emergency room was reassuring with no significant electrolyte abnormalities. Head CT was stable. Covid test is pending. He is extremely weak and not safe for outpatient management. After admission he was given IV fluids for hydration. He was seen and followed by physical therapy during his hospital stay. He is not safe for discharged home and [facility] and Occupational Therapy. - Patient Instructions Diet: Diabetic Diet Activity: As Tolerated - Discharge Plan *PRESCRIPTION DRUG MONITORING PROGRAM REVIEWED*: Not Applicable *COPY OF PRESCRIPTION DRUG MONITORING REPORT IN PATIENT HU: Not Applicable Home Medications: Home Meds Donepezil HCl 10 mg PO WITHDINNER 08/11/15 [History] Loratadine [Claritin] 10 mg PO DAILY PRN 08/11/15 [History] Memantine [Namenda] 10 mg PO BID 08/11/18 [History] Melatonin 10 mg PO BEDTIME #30 tablet 08/14/18 [Rx] Cholestyramine/Sucrose [Cholestyramine] 1 pack PO BID 12/29/19 [History] glipiZIDE [Glucotrol] 2.5 mg PO DAILY 12/30/19 [History] Referrals: Seng Colunga MD [Primary Care Provider] - - Discharge Summary/Plan Comment DC Time >30 min.: No - Patient Data Vitals - Most Recent: Last Vital Signs Temp 97.3 F 04/11/20 09:00 Pulse 64 04/11/20 09:00 Resp 18 04/11/20 09:00 BP 133/42 L 04/11/20 09:00 Pulse Ox 96 04/11/20 09:00 Weight - Most Recent: 228 lb 13.437 oz I&O - Last 24 hours: Intake & Output 04/10/20 04/11/20 04/11/20 22:59 06:59 14:59 Intake Total 620 120 Balance 620 120 Lab Results - Last 24 hrs: Laboratory Results - last 24 hr 04/10/20 Range/Units 17:17 POC Glucose 139 H (74-106) MG/DL Med Orders - Current: Current Medications Acetaminophen (Tylenol) 650 mg PO Q4H PRN PRN Reason: Pain (Mild 1-3)/fever Last Admin: 04/09/20 21:29 Dose: 650 mg Documented by: Cholestyramine Resin (Cholestyramine Packet) 4 gm PO BID [facility] Last Admin: 04/11/20 09:25 Dose: 4 gm Documented by: Donepezil HCl (Aricept) 10 mg PO [facility]DINNER [facility] Last Admin: 04/10/20 18:08 Dose: 10 mg Documented by: Glipizide (Glucotrol) 2.5 mg PO DAILY [facility] Last Admin: 04/11/20 09:25 Dose: 2.5 mg Documented by: Magnesium Hydroxide (Milk Of Magnesia) 30 ml PO Q12H PRN PRN Reason: Constipation Melatonin (Melatonin) 9 mg PO BEDTIME [facility] Last Admin: 04/10/20 20:28 Dose: 9 mg Documented by: Memantine (Namenda) 10 mg PO BID [facility] Last Admin: 04/11/20 09:25 Dose: 10 mg Documented by: Ondansetron HCl (Zofran) 4 mg IV Q6H PRN PRN Reason: Nausea/Vomiting Ondansetron HCl (Zofran Odt) 4 mg PO Q6H PRN PRN Reason: Nausea able to take PO Senna/Docusate Sodium (Senna Plus) 1 tab PO BID PRN PRN Reason: Constipation - Exam Quality Assessment: Reports: DVT Prophylaxis General: Reports: Alert, Cooperative, No Acute Distress. Denies: Oriented Lungs: Reports: Clear to Auscultation, Normal Respiratory Effort Cardiovascular: Reports: Regular Rate, Regular Rhythm, No Murmurs GI/Abdominal Exam: Soft, Non-Tender, No Organomegaly, No Distention
== END 2020-04-11 13:42 | DRG 556 ==
LOC: JP.ED 17:04 → JP.MS 19:44
PROVIDERS: ADMIT Internal Medicine; ATTEND Hospitalist
DX: R53.1 Weakness (principal); M62.81 Muscle weakness (generalized); N30.00 Acute cystitis without hematuria; R29.6 Repeated falls; S09.90XA Unspecified injury of head, initial encounter; W19.XXXA Unspecified fall, initial encounter; Z91.81 History of falling; G30.1 Alzheimer's disease with late onset; N39.0 Urinary tract infection, site not specified; Z66 Do not resuscitate; Z20.822 Contact with and (suspected) exposure to COVID-19; F02.80 Dementia in other diseases classified elsewhere, unspecified severity, without behavioral disturbance, psychotic disturbance, mood disturbance, and anxiety; E11.9 Type 2 diabetes mellitus without complications; I10 Essential (primary) hypertension; R32 Unspecified urinary incontinence; Z20.828 Contact with and (suspected) exposure to other viral communicable diseases; Y92.009 Unspecified place in unspecified non-institutional (private) residence as the place of occurrence of the external cause; Z79.899 Other long term (current) drug therapy; Z79.84 Long term (current) use of oral hypoglycemic drugs; Z88.0 Allergy status to penicillin; Z86.73 Personal history of transient ischemic attack (TIA), and cerebral infarction without residual deficits; Z98.890 Other specified postprocedural states; Z90.49 Acquired absence of other specified parts of digestive tract
CPT/HCPCS: 0241U; 36415; 70450; 80053; 81001; 82962; 85025; 97110; 97161; 97166; 97535; 99284; 99285; A9270-GY

== ENCOUNTER 2023-07-13 00:11 | Emergency (ER) | payer MEDICARE ==
[2023-07-13 00:35] LABS: BASOPHILS ABSOLUTE AUTO 0.03 K/uL (0.00-0.10); BASOPHILS PERCENT AUTO 0.4 % (0.1-1.3); EOSINOPHILS PERCENT AUTO 5.2 % (0.0-5.4); HEMATOCRIT 40.7 % (38.4-49.7); HEMOGLOBIN 13.3 g/dL (12.9-16.9); IMMATURE GRAN ABSOLUTE AUTO 0.13 K/uL (0.00-0.23); IMMATURE GRAN PERCENT AUTO 1.7 % (0.0-0.7); LYMPHOCYTES ABSOLUTE AUTO 1.71 K/uL (0.8-3.3); LYMPHOCYTES PERCENT AUTO 22.1 % (11.4-47.7); MEAN CORPUSCULAR HEMOGLOBIN 30.6 pg (31.6-35.5); MEAN CORPUSCULAR HGB CONC 32.7 g/dL (31.6-35.5); MEAN CORPUSCULAR VOLUME 93.8 fL (81.4-99.0); MONOCYTES ABSOLUTE AUTO 0.86 K/uL (0.20-0.90); MONOCYTES PERCENT AUTO 11.1 % (3.3-12.6); NEUTROPHILS ABSOLUTE AUTO 4.62 K/uL (1.0-7.6); NEUTROPHILS PERCENT AUTO 59.5 % (40.0-78.1); PLATELET COUNT,PLT 230 K/uL (130-375); RED BLOOD CELL COUNT 4.34 M/uL (4.14-5.76); WHITE BLOOD CELL COUNT,WBC 7.8 K/uL (3.2-11.0)
[2023-07-13 00:53] LABS: PROTHROMBIN TIME 10.2 sec (9.2-10.6)
[2023-07-13 01:07] LABS: A/G RATIO 0.8 (1.2-2.2); ALANINE AMINOTRANSFERASE,ALT 26 U/L (12-78); ALKALINE PHOSPHATASE 52 U/L (46-116); AMYLASE 29 U/L (25-115); ANION GAP 12.1 mmol/L (5.0-14.0); ASPARTATE AMNIOTRANSFERASE,AST 20 U/L (15-37); BILIRUBIN TOTAL 0.4 mg/dL (0.2-1.0); BLOOD UREA NITROGEN,BUN 17 mg/dL (7-18); CALCIUM 9.2 mg/dL (8.5-10.1); CARBON DIOXIDE,CO2 26 mmol/L (21-32); CHLORIDE,CL 104 mmol/L (100-108); CREATININE 0.8 mg/dL (0.8-1.3); ESTIMATED GFR 89 mL/min (>60); GLUCOSE RANDOM 131 mg/dL (74-106); MAGNESIUM 1.6 mg/dL (1.8-2.4); POTASSIUM,K 4.2 mmol/L (3.6-5.2); PRO B-TYPE NATRIUR PEPT,BNPPRO 134 pg/mL (5-450); PROTEIN TOTAL,TP 6.8 g/dL (6.4-8.2); SODIUM,NA 142 mmol/L (140-148); TROPONIN I HIGH SENSITIVITY 10.2 pg/mL (<=60.3)
[2023-07-13] MEDS: Albuterol/Ipratropium 3.0-0.5 MG/3 ML Neb Soln NEB ONE (01:07)
[2023-07-13] MEDS: methylPREDNISolone Sodium Succinate 125 MG/2 ML SDV IVPUSH ONE (01:08)
[2023-07-13] MEDS: Sodium Chloride 0.9% 1,000 ML IV SCH (01:11)
[2023-07-13 01:12] LABS: C-REACTIVE PROTEIN < 0.50 mg/dL (<0.50)
[2023-07-13] MEDS: Sodium Chloride 0.9% 10 ML Syringe FLUSH PRN (05:03)
[2023-07-13] MEDS: Iopamidol 612 MG/ML 100 ML Bottle IV PRN (05:03)
[2023-07-13] MEDS: Sodium Chloride 0.9% 100 ML IV SCH (05:03)
[2023-07-13 05:49] VITALS: BP 145/50; PULSE 70
== END 2023-07-13 09:30 ==
LOC: JP.ED 00:11 → EEVIPCON 00:11 → JP.ED 09:30
DX: J90 Pleural effusion, not elsewhere classified (principal); J98.19 Other pulmonary collapse; G30.9 Alzheimer's disease, unspecified; F06.70 Mild neurocognitive disorder due to known physiological condition without behavioral disturbance; E11.65 Type 2 diabetes mellitus with hyperglycemia; I10 Essential (primary) hypertension; E11.9 Type 2 diabetes mellitus without complications; Z88.0 Allergy status to penicillin; Z79.84 Long term (current) use of oral hypoglycemic drugs; Z79.899 Other long term (current) drug therapy; Z90.49 Acquired absence of other specified parts of digestive tract
CPT/HCPCS: 36415; 71045; 71275; 80053; 82150; 83605; 83735; 83880; 84484; 85025; 85379; 85610; 86140; 93005; 94640; 96361; 96374; 99285; J2930; J3490; J7030; Q9967; 93010; J7620